=== PATIENT | female | born 1990 | race Caucasian/White ===

== ENCOUNTER 2020-07-19 22:09 | Inpatient (IN) | payer OTHER, SELFPAY ==
[2020-07-19 22:11] VITALS: BP 140/70; PULSE 130; RESP 20; TEMP 37.3; O2SAT 97; BMI 22.8
[2020-07-19 23:01] LABS: Basophils Absolute Auto 0.1 X10*3/uL (0.0-0.2); Basophils Percent Auto 0.6 % (0-2); Eosinophils Percent Auto 0.1 % (0-4); Hematocrit 38.1 % (37-47); Hemoglobin 11.9 g/dl (12.0-16.0); Imm Gran Abs Auto 0.04 X10*3/uL (0.00-0.03); Imm Gran Pct Auto 0.3 % (0.0-0.4); Lymphocytes Absolute Auto 1.5 X10*3/uL (1.2-4.9); Lymphocytes Percent Auto 12.2 % (20-40); MANUAL DIFF FLAG NO; Mean Corpuscular HGB Conc 31.2 g/dl (31.0-35.0); Mean Corpuscular Hemoglobin 26.7 pg (27.0-33.0); Mean Corpuscular Volume 85.4 fL (80-98); Mean Platelet Volume 9.6 fL (9.4-12.3); Monocytes Absolute Auto 0.9 X10*3/uL (0.1-1.2); Monocytes Percent Auto 6.9 % (2-11); Neutrophils Absolute Auto 9.8 X10*3/uL (2.0-8.3); Neutrophils Percent Auto 79.9 % (45-73); Platelet Count 374 X10*3/uL (160-400); Red Blood Count 4.46 X10*6/uL (4.20-5.50); Red Cell Distribution Width 13.6 % (11.0-16.0); White Blood Count 12.3 X10*3/uL (4.8-10.8)
[2020-07-19] MEDS: Piperacillin Sodium/Tazobactam 3.375 GM in 0.9 % Sodium Chloride 50 ML IV (23:13)
[2020-07-19] MEDS: diphenhydrAMINE HCL 50 MG/ML VIAL 25 MG IVPUSH (23:13)
[2020-07-19] MEDS: 0.9 % Sodium Chloride 1,000 ML 999 ML IVCONT (23:13)
--- NOTE | 2020-07-19 23:13 | ED.GENADULT ---
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 jugular vein comes here for swelling with pus discharge for last 10 days in left internal jugular vein spreading to the upper chest patient denies any fever but does not feel good patient has history of multiple abscesses in the past Related Data Allergies Allergy/AdvReac Type Severity Reaction Status Date / Time Cephalosporins Allergy Severe ANAPHYLAXIS Verified 07/19/20 22:10 [CEPHALOSPORINS] cefaclor [From CECLOR] Allergy Mild AIRWAY Verified 07/19/20 22:10 CONSTRICTION bee stings Allergy Unknown Anaphylaxis Uncoded 07/19/20 22:10 ceclor Allergy Unknown anaphylaxis Uncoded 08/17/17 00:00 cephalosporin Allergy Unknown anaphylaxis Uncoded 08/17/17 00:00 Review of Systems Review of Systems: REVIEW OF SYSTEMS: Pertinent positives and negatives are stated above in the history. GEN: subjective fevers, chills, fatigue HEENT: no nasal congestion, sore throat, ear pain NEURO: no headache, dizziness, focal weakness PULM: no cough, shortness of breath CV: no chest pain, palpitations, LE edema ABD: no abdominal pain, nausea, vomiting, diarrhea : no dysuria, urgency, frequency SKIN: no rash ROS otherwise negative x 10 PMFSH Past Medical History Medical History Asthma Drug abuse Social History Social History Advance Directives: No Advance Directives Information Provided: Yes Physical Exam Vital Signs: Vital Signs: Last Vital Signs Temp 99.1 F 07/19/20 22:11 Pulse 84 07/20/20 00:57 Resp 16 07/20/20 00:57 BP 148/84 H 07/20/20 00:57 Pulse Ox 98 07/20/20 00:57 Body Mass Index 22.8 Const: General: cooperative, healthy appearing and in distress Orientation/consciousness: oriented to person, oriented to place and oriented to time Limitations: no limitations HENMT: Mouth: Normal oral and palatal mucosa present Eyes: Conjunctivae: conjunctivae normal Sclerae: sclerae normal Neck: Neck: Yes lymphadenopathy Thyroid: Thyroid normal Neck images: 1. abscess with swelling and redness and pus discharge Resp: Effort & Inspection: normal respiratory effort Auscultation: clear to auscultation bilaterally, no crackles, no rales and no rhonchi Cardio: Rate: regular rate Rhythm: regular rhythm Heart sounds: S1 normal heart sound present and S2 normal heart sound present GI: Inspection: Yes normal to inspection Palpation (GI): Soft to palpation, Firmness to palpation present (GI), nontender and no guarding : General: Yes no CVA tenderness Back/Spine/Pelvis: Back: no CVA tenderness Neuro: General: oriented to person, oriented to place and oriented to time Course Course Course Narrative: patient with left neck abscess after using IV drugs without any vascular compromise. Patient refuse I and D in the ER would like surgeon to do it in the morning although she was explained the procedure. Patient received IV vancomycin Zosyn the ER will admit patient for further surgical evaluation Medical Decision Making Lab Data Result diagrams: 07/19/20 22:52 07/19/20 23:58 Labs: Lab Results 07/19/20 07/19/20 07/19/20 Range/Units 22:52 22:52 22:52 WBC 12.3 H (4.8-10.8) X10*3/uL RBC 4.46 (4.20-5.50) X10*6/uL Hgb 11.9 L (12.0-16.0) g/dl Hct 38.1 (37-47) % MCV 85.4 (80-98) fL MCH 26.7 L (27.0-33.0) pg MCHC 31.2 (31.0-35.0) g/dl RDW 13.6 (11.0-16.0) % Plt Count 374 (160-400) X10*3/uL MPV 9.6 (9.4-12.3) fL Immature Gran % (Auto) 0.3 (0.0-0.4) % Neut % (Auto) 79.9 H (45-73) % Lymph % (Auto) 12.2 L (20-40) % [place] % (Auto) 6.9 (2-11) % Eos % (Auto) 0.1 (0-4) % Baso % (Auto) 0.6 (0-2) % Lymph # (Auto) 1.5 (1.2-4.9) X10*3/uL [place] # (Auto) 0.9 (0.1-1.2) X10*3/uL Eos # (Auto) 0.0 (0.0-0.4) X10*3/uL Baso # (Auto) 0.1 (0.0-0.2) X10*3/uL Abs Immat Gran (auto) 0.04 H (0.00-0.03) X10*3/uL Absolute Neuts (auto) 9.8 H (2.0-8.3) X10*3/uL Absolute Nucleated RBC 0.000 (0.0-0.012) X10*3/uL Nucleated RBC % (auto) 0.0 (0.0-0.2) /100WBC Hold Blue Top SEE NOTE Sodium Cancelled Potassium Cancelled Chloride Cancelled Carbon Dioxide Cancelled Anion Gap Cancelled BUN Cancelled Creatinine Cancelled Estim Creat Clear Calc Cancelled Estimated GFR Cancelled Random Glucose Cancelled Lactic Acid (0.5-2.0) mmol/L Calcium Cancelled Total Bilirubin Cancelled AST Cancelled ALT Cancelled Alkaline Phosphatase Cancelled Total Protein Cancelled Albumin Cancelled COVID-19 (LOIS) (Negative) COVID-19 Clin Com 07/19/20 07/19/20 07/19/20 Range/Units 22:52 23:58 23:58 WBC (4.8-10.8) X10*3/uL RBC (4.20-5.50) X10*6/uL Hgb (12.0-16.0) g/dl Hct (37-47) % MCV (80-98) fL MCH (27.0-33.0) pg MCHC (31.0-35.0) g/dl RDW (11.0-16.0) % Plt Count (160-400) X10*3/uL MPV (9.4-12.3) fL Immature Gran % (Auto) (0.0-0.4) % Neut % (Auto) (45-73) % Lymph % (Auto) (20-40) % [place] % (Auto) (2-11) % Eos % (Auto) (0-4) % Baso % (Auto) (0-2) % Lymph # (Auto) (1.2-4.9) X10*3/uL [place] # (Auto) (0.1-1.2) X10*3/uL Eos # (Auto) (0.0-0.4) X10*3/uL Baso # (Auto) (0.0-0.2) X10*3/uL Abs Immat Gran (auto) (0.00-0.03) X10*3/uL Absolute Neuts (auto) (2.0-8.3) X10*3/uL Absolute Nucleated RBC (0.0-0.012) X10*3/uL Nucleated RBC % (auto) (0.0-0.2) /100WBC Hold Blue Top Sodium 134 L Potassium 4.1 Chloride 100 Carbon Dioxide 23 Anion Gap 15 BUN 11 Creatinine 0.64 Estim Creat Clear Calc 128.4 Estimated GFR > 60 Random Glucose 92 Lactic Acid 0.9 (0.5-2.0) mmol/L Calcium 8.3 L Total Bilirubin 0.6 AST 38 H ALT 35 H Alkaline Phosphatase 58 Total Protein 6.8 Albumin 3.5 COVID-19 (LOIS) Negative (Negative) COVID-19 Clin Com See Note Discharge Plan Discharge Clinical Impression: Abscess of neck Patient Disposition: Admitted As Inpatient
[2020-07-19 23:19] LABS: Lactic Acid 0.9 mmol/L (0.5-2.0)
--- NOTE | 2020-07-19 23:22 | PC.NURSE ---
PT IN ROOM CRYING. PT IS RATING PAIN 8/10 TO HEAD, NECK, AND CHEST. PT ON MONITOR WITH HR 112. PT MEDICATED PER EMAR. NS UP AND RUNNING W/O SITE INTACT. PT AWAITING FOR FURTHER ORDERS.
[2020-07-19 23:24] VITALS: BP 148/84; PULSE 100; RESP 18; O2SAT 99
[2020-07-19] MEDS: vancomycin HCL 1,000 MG in 0.9 % Sodium Chloride 250 ML 270 MG IV (23:30)
[2020-07-20] VITALS (15 sets, daily range): BP systolic 91–148; BP diastolic 37–84; PULSE 68–90; RESP 16–18; TEMP 36.2–37.2; O2SAT 97–100
--- NOTE | 2020-07-20 00:22 | PC.NURSE ---
PT WAKES TO VERBAL STIMULI, RESPIRATIONS EASY, N/L. SKIN W/D. PT HAS LARGE RED AREA ON LEFT SIDE OF NECK WITH MULTIPLE TRACK [place]. PT'S BREATHING WNL WITH A PO OF 99%. VS OBTAINED. ZOSYN INFUSED W/O DIFFICULTY. SITE INTACT. NS UP AND RUNNING W/O. PT AWAITING FOR CT OF NECK WHEN PENDING LABS RESULT.
[2020-07-20 00:39] LABS: COVID-19 Test Negative (Negative)
[2020-07-20 00:40] LABS: Alanine Aminotransferase 35 U/L (0-31); Albumin Level 3.5 g/dL (3.5-5.0); Alkaline Phosphatase 58 U/L (39-117); Anion Gap 15 (12-20); Aspartate Amino Transferase 38 U/L (5-31); Bilirubin Total 0.6 mg/dL (0.0-1.0); Blood Urea Nitrogen 11 mg/dL (9-16); Calcium 8.3 mg/dL (8.4-10.2); Carbon Dioxide 23 mmol/L (22-29); Chloride 100 mmol/L (96-108); Creatinine Clr Calc Pharmacy 128.4; Estimated Glomerular Filt Rate > 60; Glucose Random 92 mg/dL (60-115); Potassium 4.1 mmol/l (3.3-5.1); Sodium 134 mmol/L (135-145); Total Protein 6.8 g/dL (6.5-8.0)
--- NOTE | 2020-07-20 00:40 | CT_ITS ---
EXAMINATION: CT SOFT TISSUE NECK WITH CONTRAST CLINICAL INFORMATION: Left neck swelling, question abscess COMPARISON: None TECHNIQUE: Following the intravenous administration of 60 mL of Omnipaque 350 intravenous contrast, helical imaging was performed in the axial plane with generation of coronal and sagittal reformatted images. This CT examination was performed using dose optimization techniques as appropriate, variously including the following: *Automated exposure control *Adjustment of mA and/or kV according to patient size (this includes techniques or standardized protocols for targeted exams where dose is matched to indication/reason for exam; i.e. extremities or head) *Use of iterative reconstruction technique DLP: 893 mGy-cm FINDINGS: There is extensive stranding throughout the subcutaneous and deep fat of the left neck with overlying skin thickening, suspicious for extensive cellulitis. Stranding extends into the left parapharyngeal fat and also abuts the left submandibular gland. Additionally, there is asymmetric enlargement and abnormal hypoattenuation of left sternocleidomastoid muscle, raising suspicion for underlying myositis. No discrete rim-enhancing fluid collection is seen, though there is a more prominent region of hypoattenuation along the lateral lower aspect of the sternocleidomastoid muscle such as seen on image 69/148; this is concerning for phlegmonous change, and this region measures approximately 2.7 x 2.1 cm in the axial plane and 5.2 cm in craniocaudal dimension. There are several asymmetrically prominent left-sided level 2 cervical lymph nodes, presumably reactive. The laryngeal structures are normal. The parapharyngeal fat is preserved. The carotid sheath vasculature opacify normally. No retropharyngeal fluid collection is seen. The thyroid gland is normal. The superior mediastinum is unremarkable. The lung apices are clear. There is mucosal thickening of the left sphenoid sinus. There are mucous retention cysts noted in the maxillary sinuses. The mastoid air cells are well-aerated. The temporomandibular joints are normal. No osseous abnormalities are seen. The imaged portions of the brain parenchyma are unremarkable. CT/CT soft tissue neck w con IMPRESSION: Extensive stranding in the superficial and deep fat of the left neck, consistent with cellulitis. Abnormal appearance of the left sternocleidomastoid muscle is suspicious for associated myositis. Though no discrete rim-enhancing collection is seen at this time, there is a region of more prominent low density in the lateral aspect of the lower sternocleidomastoid muscle measuring up to 5.2 cm in craniocaudal dimension which is concerning for phlegmonous change.
[2020-07-20] MEDS: iohexoL 350 MG/ML 100 ML INFUS..BTL 60 ML IV (01:13)
--- NOTE | 2020-07-20 01:14 | PC.NURSE ---
PT TO CT IN STRETCHER.
--- NOTE | 2020-07-20 01:30 | PC.NURSE ---
IN ROOM FOR INCISE LEFT SIDE OF NECK. PT REFUSED PROCEDURE.
--- NOTE | 2020-07-20 02:27 | PC.NURSE ---
ANTIBIOTICS INFUSED W/O DIFFICULTY. SITE INTACT. PT DENIES TAKING ANY MEDS AT HOME. HOSPITALIST IN ROOM FOR EVAL. PT AWAITING FOR ROOM ASSIGNMENT.
--- NOTE | 2020-07-20 03:49 | PM.IMHP ---
History of Present Illness Date of Service: 07/20/20 Chief Complaint: left neck pain 30 y/o female with PMHx of IVDA (cocaine and heroin) who presented from home c/o left sided neck pain. uppon presentation patient was tachycardic, tachypneic. WBC of ~12.3, mildly elevated LFT', one dose of Zosyn and Vancomycin given per ED for broad coverage. Imaging of the neck obtained in the Ed shows left sided neck cellulitis with myositis. Decision for admission given. I and D was offered by ED but patient declined the procedure. Patient seen and examined face to face in the ED, ROS as above otherwise negative. PHMHx: IV drug abuse, cocaine and Heroin abuse PSx: none Toxic habits: as above Review of Systems Musculoskeletal: Musculoskeletal: Reports other (left sided neck pain ) [facility] Medical History Asthma Drug abuse Functional capacity: independent ambulation Social History Advance Directives: No Advance Directives Information Provided: Yes Meds Allergies Allergy/AdvReac Type Severity Reaction Status Date / Time Cephalosporins Allergy Severe ANAPHYLAXIS Verified 07/19/20 22:10 [CEPHALOSPORINS] cefaclor [From CECLOR] Allergy Mild AIRWAY Verified 07/19/20 22:10 CONSTRICTION bee stings Allergy Unknown Anaphylaxis Uncoded 07/19/20 22:10 ceclor Allergy Unknown anaphylaxis Uncoded 08/17/17 00:00 cephalosporin Allergy Unknown anaphylaxis Uncoded 08/17/17 00:00 Home Medications Medication Instructions Recorded Confirmed Type No Known Home Meds 07/20/20 07/20/20 History Physical Exam Vital Signs and Narrative: Vital Signs: Last Vital Signs Temp 99.1 F 07/19/20 22:11 Pulse 84 07/20/20 00:57 Resp 16 07/20/20 00:57 BP 148/84 H 07/20/20 00:57 Pulse Ox 98 07/20/20 00:57 Body Mass Index 22.8 Const: General: cooperative, comfortable and no acute distress Orientation/consciousness: oriented to person, oriented to place and oriented to time HENMT: Head: Yes normal to inspection Eyes: General: appearance normal, both eyes and all related structures Neck: Yes other (left sided neck cellulitis) Chest: Chest palpation & inspection: normal inspection of the chest Resp: Effort & Inspection: normal respiratory effort and able to speak in complete sentences Auscultation: clear to auscultation bilaterally Cardio: Jugular venous distension: no JVD Rhythm: regular rhythm Heart sounds: S1 normal heart sound present and S2 normal heart sound present GI: Inspection: Yes normal to inspection Skin: General skin exam: other (left sided neck cellulitis with possible evidence of abscess. ) Neuro: General: oriented to person, oriented to place and oriented to time Motor exam (neuro): 5/5 motor strength present throughout Results Labs CBC and Chem 7: 07/19/20 22:52 07/19/20 23:58 Labs: Laboratory Results - last 24 hr 07/19/20 07/19/20 07/19/20 22:52 22:52 22:52 MCV 85.4 MCH 26.7 L MCHC 31.2 RDW 13.6 Plt Count 374 MPV 9.6 Immature Gran % (Auto) 0.3 Neut % (Auto) 79.9 H Lymph % (Auto) 12.2 L [place] % (Auto) 6.9 Eos % (Auto) 0.1 Baso % (Auto) 0.6 Lymph # (Auto) 1.5 [place] # (Auto) 0.9 Eos # (Auto) 0.0 Baso # (Auto) 0.1 Abs Immat Gran (auto) 0.04 H Absolute Neuts (auto) 9.8 H Absolute Nucleated RBC 0.000 Nucleated RBC % (auto) 0.0 Hold Blue Top SEE NOTE Anion Gap Cancelled Estim Creat Clear Calc Cancelled Estimated GFR Cancelled Random Glucose Cancelled Lactic Acid Calcium Cancelled Total Bilirubin Cancelled AST Cancelled ALT Cancelled Alkaline Phosphatase Cancelled Total Protein Cancelled Albumin Cancelled COVID-19 (LOIS) COVID-19 Clin Com 07/19/20 07/19/20 07/19/20 22:52 23:58 23:58 MCV MCH MCHC RDW Plt Count MPV Immature Gran % (Auto) Neut % (Auto) Lymph % (Auto) [place] % (Auto) Eos % (Auto) Baso % (Auto) Lymph # (Auto) [place] # (Auto) Eos # (Auto) Baso # (Auto) Abs Immat Gran (auto) Absolute Neuts (auto) Absolute Nucleated RBC Nucleated RBC % (auto) Hold Blue Top Anion Gap 15 Estim Creat Clear Calc 128.4 Estimated GFR > 60 Random Glucose 92 Lactic Acid 0.9 Calcium 8.3 L Total Bilirubin 0.6 AST 38 H ALT 35 H Alkaline Phosphatase 58 Total Protein 6.8 Albumin 3.5 COVID-19 (LOIS) Negative COVID-19 Clin Com See Note Imaging Radiologist's Impressions: Impressions Soft Tissue Neck CT 07/20/20 00:40 IMPRESSION: Extensive stranding in the superficial and deep fat of the left neck, consistent with cellulitis. Abnormal appearance of the left sternocleidomastoid muscle is suspicious for associated myositis. Though no discrete rim-enhancing collection is seen at this time, there is a region of more prominent low density in the lateral aspect of the lower sternocleidomastoid muscle measuring up to 5.2 cm in craniocaudal dimension which is concerning for phlegmonous change. Assessment and Plan (1) Abscess of neck: Status: Acute s/p one dose of Vanco and Zosyn in the. Patient is allergic to penicilline Continue with Vancomycin as ordered Follow up Bcx and Ucx Infectious disease consult in the am General surgery for I and D (2) IV drug abuse: Status: Inactive advised to avoid drugs
--- NOTE | 2020-07-20 06:19 | PC.NURSE ---
PT SLEEPING IN STRETCHER, WAKES TO VERBAL STIMULI, PT C/O TIGHTNESS TO LATERAL SIDE OF LEFT NECK AREA. VS OBTAINED. PT DENIES ANY COMPLAINTS AND RATING NECK PAIN 5/10. PT AWAITING FOR BED ASSIGNMENT. AWAITING FURTHER ORDERS.
--- NOTE | 2020-07-20 06:21 | PC.NURSE ---
PT UNABLE TO URINATE AT THIS TIME. PT WENT TO RESTROOM PREVIOUS AND UNABLE TO URINATE AT THIS TIME. CUP AT BEDSIDE FOR PT. PT AWARE.
--- NOTE | 2020-07-20 07:06 | PC.NURSE ---
report to LUANN Levine
--- NOTE | 2020-07-20 08:19 | PC.NURSE ---
REPORT FROM KIMI. PT AWAITING BED ASSIGNMENT FOR INFECTED LEFT NECK S/P INJECTING. DR WRIGHT AT BEDSIDE FOR CONSULT. NAD. ATE BREAKFAST.
--- NOTE | 2020-07-20 08:29 | PM.CNGS ---
History of Present Illness Consult details Consult date: 07/20/20 Reason for consult: other (Left neck abscess) Requesting physician: Isaiah Holley Narrative: This is a 30-year-old female with a history of IV heroin use to injected into her neck in multiple locations on the left side recently. She has a several day history of increasing pain and swelling in the left anterior neck and reports that she has been draining large amounts of pus from the area for the last day or so. She reports pain and difficulty moving her head. Review of Systems Constitutional: Constitutional: Denies chills and Denies fever(s) Cardiovascular: Cardiovascular: Denies chest pain, Denies palpitations and Denies dyspnea Respiratory: Respiratory: Denies dyspnea Endocrine: Endocrine: Denies palpitations PMFSH Past Medical History Medical History Asthma Drug abuse IV drug abuse Functional capacity: independent ambulation Social History Social History Advance Directives: No Advance Directives Information Provided: Yes Meds Allergies Allergy/AdvReac Type Severity Reaction Status Date / Time Cephalosporins Allergy Severe ANAPHYLAXIS Verified 07/19/20 22:10 [CEPHALOSPORINS] cefaclor [From CECLOR] Allergy Mild AIRWAY Verified 07/19/20 22:10 CONSTRICTION bee stings Allergy Unknown Anaphylaxis Uncoded 07/19/20 22:10 ceclor Allergy Unknown anaphylaxis Uncoded 08/17/17 00:00 cephalosporin Allergy Unknown anaphylaxis Uncoded 08/17/17 00:00 Home Medications Medication Instructions Recorded Confirmed Type No Known Home Meds 07/20/20 07/20/20 History Physical Exam Vital Signs: Vital Signs: Last Vital Signs Temp 99.1 F 07/19/20 22:11 Pulse 74 07/20/20 06:00 Resp 16 07/20/20 06:00 BP 99/48 L 07/20/20 06:00 Pulse Ox 98 07/20/20 06:00 Body Mass Index 22.8 Const: General: cooperative, poor hygiene and tired appearing Neck: Other: Left anterior neck is erythematous and indurated around periphery of erythematous area of, softer centrally with 3 small wounds consistent with injection sites. The central site is slightly larger and is draining seroma purulent-appearing material, moderate tenderness Neck: No full ROM (Limited by pain and swelling) Carotids: normal carotid upstroke (On right) Resp: Effort & Inspection: normal respiratory effort Auscultation: clear to auscultation bilaterally Cardio: Rate: regular rate Rhythm: regular rhythm Results Labs Result diagrams: 07/19/20 22:52 07/19/20 23:58 Labs: Abnormal lab results 07/19/20 07/19/20 Range/Units 22:52 23:58 WBC 12.3 H (4.8-10.8) X10*3/uL Hgb 11.9 L (12.0-16.0) g/dl MCH 26.7 L (27.0-33.0) pg Neut % (Auto) 79.9 H (45-73) % Lymph % (Auto) 12.2 L (20-40) % Abs Immat Gran (auto) 0.04 H (0.00-0.03) X10*3/uL Absolute Neuts (auto) 9.8 H (2.0-8.3) X10*3/uL Sodium 134 L (135-145) mmol/L Calcium 8.3 L (8.4-10.2) mg/dL AST 38 H (5-31) U/L ALT 35 H (0-31) U/L Short CBC 07/19/20 Range/Units 22:52 WBC 12.3 H (4.8-10.8) X10*3/uL Hgb 11.9 L (12.0-16.0) g/dl Hct 38.1 (37-47) % Plt Count 374 (160-400) X10*3/uL BMP 07/19/20 07/19/20 22:52 23:58 Sodium Cancelled 134 L Potassium Cancelled 4.1 Chloride Cancelled 100 Carbon Dioxide Cancelled 23 BUN Cancelled 11 Creatinine Cancelled 0.64 Calcium Cancelled 8.3 L Liver Function 07/19/20 07/19/20 Range/Units 22:52 23:58 Total Bilirubin Cancelled 0.6 AST Cancelled 38 H ALT Cancelled 35 H Alkaline Phosphatase Cancelled 58 Albumin Cancelled 3.5 All other labs normal. [address] [address] [address] Scan Report Signed Patient: Amanda Ng#: [id number] : 1990Acct:[id number] Age/Sex: 30 / FADM Date: 07/19/20 Loc: HO.ED Attending Dr: Ordering Physician: Luis Felipe Deras MD Date of Service: 07/20/20 Procedure(s): CT soft tissue neck w con Accession Number(s): [id number] cc: Luis Felipe Deras MD~ EXAMINATION: CT SOFT TISSUE NECK WITH CONTRAST CLINICAL INFORMATION: Left neck swelling, question abscess COMPARISON: None TECHNIQUE: Following the intravenous administration of 60 mL of Omnipaque 350 intravenous contrast, helical imaging was performed in the axial plane with generation of coronal and sagittal reformatted images. This CT examination was performed using dose optimization techniques as appropriate, variously including the following: *Automated exposure control *Adjustment of mA and/or kV according to patient size (this includes techniques or standardized protocols for targeted exams where dose is matched to indication/reason for exam; i.e. extremities or head) *Use of iterative reconstruction technique DLP: 893 mGy-cm FINDINGS: There is extensive stranding throughout the subcutaneous and deep fat of the left neck with overlying skin thickening, suspicious for extensive cellulitis. Stranding extends into the left parapharyngeal fat and also abuts the left submandibular gland. Additionally, there is asymmetric enlargement and abnormal hypoattenuation of left sternocleidomastoid muscle, raising suspicion for underlying myositis. No discrete rim-enhancing fluid collection is seen, though there is a more prominent region of hypoattenuation along the lateral lower aspect of the sternocleidomastoid muscle such as seen on image 69/148; this is concerning for phlegmonous change, and this region measures approximately 2.7 x 2.1 cm in the axial plane and 5.2 cm in craniocaudal dimension. There are several asymmetrically prominent left-sided level 2 cervical lymph nodes, presumably reactive. The laryngeal structures are normal. The parapharyngeal fat is preserved. The carotid sheath vasculature opacify normally. No retropharyngeal fluid collection is seen. The thyroid gland is normal. The superior mediastinum is unremarkable. The lung apices are clear. There is mucosal thickening of the left sphenoid sinus. There are mucous retention cysts noted in the maxillary sinuses. The mastoid air cells are well-aerated. The temporomandibular joints are normal. No osseous abnormalities are seen. The imaged portions of the brain parenchyma are unremarkable. CT/CT soft tissue neck w con IMPRESSION: Extensive stranding in the superficial and deep fat of the left neck, consistent with cellulitis. Abnormal appearance of the left sternocleidomastoid muscle is suspicious for associated myositis. Though no discrete rim-enhancing collection is seen at this time, there is a region of more prominent low density in the lateral aspect of the lower sternocleidomastoid muscle measuring up to 5.2 cm in craniocaudal dimension which is concerning for phlegmonous change. Dictated By:ELISE VITALE MD Signed By:<Electronically signed by ELISE VITALE MD in OV>07/20/20 0154 Assessment and Plan (1) Abscess of neck: Status: Acute She has cellulitis and clinical findings consistent with an abscess of the left anterior neck. Incision and drainage is appropriate. The CT scan report indicates the presence of a phlegmon rather than an abscess, but based upon exam findings and history, it appears that an abscess is present. I discussed this with her. She is willing to proceed with incision and drainage. Because of the location and extent of the involved area, have recommended incision and drainage under anesthesia. We have discussed risks including but not limited to infection, bleeding, scarring, and nerve injury. The procedure is scheduled for later this afternoon, as she has not been NPO up to this point. She agrees to proceed. Procedures Abscess I/D Date of Service: 07/20/20
[2020-07-20 09:05] LABS: Glucose Urine UA NEG (NEG); Leukocyte Esterase Urine NEG (NEG); Nitrite Urine NEG (NEG); Urine Blood TRACE (NEG); Urine Ketones NEG (NEG); Urine Protein NEG (NEG-TRACE)
[2020-07-20 09:06] LABS: Appearance Urine CLEAR; Color Urine YELLOW
[2020-07-20 09:17] LABS: WBC Urine 0-2 /HPF (0-4)
[2020-07-20 09:18] LABS: RBC Urine 0-2 /HPF (0); Squamous Epithelial Cell Urine 1+ /LPF
[2020-07-20 12:35] LABS: MANUAL DIFF FLAG NO
[2020-07-20 12:40] LABS: Basophils Absolute Auto 0.1 X10*3/uL (0.0-0.2); Basophils Percent Auto 0.6 % (0-2); Eosinophils Absolute Auto 0.1 X10*3/uL (0.0-0.4); Eosinophils Percent Auto 1.5 % (0-4); Hematocrit 37.3 % (37-47); Hemoglobin 11.6 g/dl (12.0-16.0); Imm Gran Abs Auto 0.03 X10*3/uL (0.00-0.03); Imm Gran Pct Auto 0.4 % (0.0-0.4); Lymphocytes Absolute Auto 2.1 X10*3/uL (1.2-4.9); Lymphocytes Percent Auto 25.4 % (20-40); Mean Corpuscular HGB Conc 31.1 g/dl (31.0-35.0); Mean Corpuscular Hemoglobin 26.7 pg (27.0-33.0); Mean Corpuscular Volume 85.9 fL (80-98); Mean Platelet Volume 9.4 fL (9.4-12.3); Monocytes Absolute Auto 0.8 X10*3/uL (0.1-1.2); Monocytes Percent Auto 9.7 % (2-11); Neutrophils Percent Auto 62.4 % (45-73); Platelet Count 359 X10*3/uL (160-400); Red Blood Count 4.34 X10*6/uL (4.20-5.50); Red Cell Distribution Width 13.8 % (11.0-16.0); White Blood Count 8.1 X10*3/uL (4.8-10.8)
[2020-07-20 13:02] LABS: Anion Gap 14 (12-20); Blood Urea Nitrogen 10 mg/dL (9-16); Calcium 8.2 mg/dL (8.4-10.2); Carbon Dioxide 25 mmol/L (22-29); Chloride 103 mmol/L (96-108); Creatinine Clr Calc Pharmacy 120.9; Estimated Glomerular Filt Rate > 60; Glucose Random 92 mg/dL (60-115); Potassium 4.6 mmol/l (3.3-5.1); Sodium 137 mmol/L (135-145)
[2020-07-20] MEDS: LORazepam 0.5 MG TABLET PO (13:51)
[2020-07-20 15:09] LABS: UPreg QC Valid YES; Urine Pregnancy NEGATIVE (NEGATIVE)
--- NOTE | 2020-07-20 15:55 | P.CNID_ITS ---
History of Present Illness Data of Consult Service Date: 07/20/20 Requesting physician: Taylor Ambrose Primary Care Provider: Unknown Physician HPI Reason for consult: left neck abscess She presents to hospital with discomfort left neck for a day She injects cocaine and heroin into veins in neck She has discomfort going into mid chest area as well She has had fever and chills Review of Systems Review of Systems: Yes all other systems are reviewed and are negative FOR[facility]LY [facility] Past Medical History Medical History Asthma Drug abuse IV drug abuse Functional capacity: independent ambulation Social History Social History Household Members: None Housing: Homeless Do you presently have visiting nurse or other home services: No Smoking Status: Current every day smoker Tobacco Type: Cigarette Packs Per Day: 0.5 Cigarettes Per Day: 10.0 Years Smoked: 15 Smoked in Last 30 Days: Yes Patient Interested in Nicotine Replacement: Yes (nicotine gum) Patient Given Instructions on How to Stop Smoking: No Second Hand Smoke Exposure: Yes Use of substances other than those prescribed or required for medical reasons: Yes Substance Use Type: Heroin Substance Use Frequency: Daily Last Used Substance Other:: 07/19/20 1700 Currently Displaying Signs/Symptoms of Drug Intoxication Withdrawal: Yes Any prior treatment program specific to substance use: Yes (methadone and suboxone before) Have you been hit, kicked, punched, or otherwise hurt by someone within the past year? If so, by whom?: No Do you feel safe in your current relationship?: Yes Is there a partner from a previous relationship who is making you feel unsafe now?: No Are you made to feel afraid or neglected: No Advance Directives: No Advance Directives Information Provided: Yes Advance Directives on File: No Do you have thoughts of harming others: None Do you have a plan to hurt others: No Plan Recently lost weight without trying: No Meds Allergies Allergy/AdvReac Type Severity Reaction Status Date / Time Cephalosporins Allergy Severe ANAPHYLAXIS Verified 07/19/20 22:10 [CEPHALOSPORINS] cefaclor [From CECLOR] Allergy Mild AIRWAY Verified 07/19/20 22:10 CONSTRICTION bee stings Allergy Unknown Anaphylaxis Uncoded 07/19/20 22:10 Home Medications Medication Instructions Recorded Confirmed Type No Known Home Meds 07/20/20 07/20/20 History Physical Exam Vital Signs: Vital Signs: Last Vital Signs Temp 98.2 F 07/20/20 14:27 Pulse 68 07/20/20 14:27 Resp 18 07/20/20 14:27 BP 94/46 L 07/20/20 14:27 Pulse Ox 99 07/20/20 14:27 Body Mass Index 22.8 Const: General: cooperative Orientation/consciousness: oriented to person, oriented to place and oriented to time HENMT: Head: Yes normal to inspection Mouth: Normal oral and palatal mucosa present Eyes: General: appearance normal, both eyes and all related structures Neck: Neck images: 1. swelling left neck Chest: Chest palpation & inspection: normal inspection of the chest, normal palpation of entire chest wall and abnormal inspection of the chest (discomfort palpation chest wall) Resp: Effort & Inspection: normal respiratory effort Cardio: Rate: regular rate Rhythm: regular rhythm GI: Inspection: Yes normal to inspection Skin: General skin exam: no rashes or lesions noted Neuro: General: oriented to person, oriented to place and oriented to time Assessment and Plan (1) Abscess of neck: Problem details: She has probable MRSA neck But it can be polymicrobial yousif,gram negative and anerobes Status: Acute Would continue Vancomycin and broad spectrum Surgery is following Watch chest wall for any symptoms of mediastinitis Check HIV and Hepatitis C Results Labs CBC & Chem 7: 07/20/20 12:29 07/20/20 12:29 Labs: Short CBC 07/19/20 07/20/20 Range/Units 22:52 12:29 WBC 12.3 H 8.1 (4.8-10.8) X10*3/uL Hgb 11.9 L 11.6 L (12.0-16.0) g/dl Hct 38.1 37.3 (37-47) % Plt Count 374 359 (160-400) X10*3/uL BMP 07/19/20 07/19/20 07/20/20 22:52 23:58 12:29 Sodium Cancelled 134 L 137 Potassium Cancelled 4.1 4.6 Chloride Cancelled 100 103 Carbon Dioxide Cancelled 23 25 BUN Cancelled 11 10 Creatinine Cancelled 0.64 0.68 Calcium Cancelled 8.3 L 8.2 L Liver Function 07/19/20 07/19/20 Range/Units 22:52 23:58 Total Bilirubin Cancelled 0.6 AST Cancelled 38 H ALT Cancelled 35 H Alkaline Phosphatase Cancelled 58 Albumin Cancelled 3.5 Urine 07/20/20 Range/Units 08:52 Urine Color YELLOW Urine Appearance CLEAR Urine pH 6.0 (5.0-8.0) Ur Specific [place] 1.010 (1.005-1.025) Urine Protein NEG (NEG-TRACE) MG/DL Urine Glucose (UA) NEG (NEG) MG/DL
--- NOTE | 2020-07-20 16:23 | PM.EVENT ---
Event Note Date of Service: 07/21/20 Event Note: Patient already seen by night hospitalist service Patient came with neck cellulitis/abscess Patient says neck pain is little better but feeling anxious and restlessness also. Physical exam: neck left -has erythema /swelling Cvs: rrr, [id number] , no murmur res: clear to auscultation ,no rhonchii or wheezing abd: no rebound or guarding ,nt, bs present. ext pulses present , no cyanosis neuro: axo3 , nonfocal. Assessment and plan coordinated in H&P note 1. Neck cellulitis/abscess injects cocaine in neck. Patient is already on IV antibiotics vancomycin, levaquin/flagyl vanco trough continue ivf Going for neck abscess I&D as per surgery today
--- NOTE | 2020-07-20 16:40 | MHC.SHP ---
Pre-Procedural Eval Section A The patient is an INPATIENT: Yes Section B Chief Complaint: Neck Pain Allergies: Allergies Allergy/AdvReac Type Severity Reaction Status Date / Time Cephalosporins Allergy Severe ANAPHYLAXIS Verified 07/19/20 22:10 [CEPHALOSPORINS] cefaclor [From CECLOR] Allergy Mild AIRWAY Verified 07/19/20 22:10 CONSTRICTION bee stings Allergy Unknown Anaphylaxis Uncoded 07/19/20 22:10 Plan Diagnosis/Plan: Unchanged Patient has been examined and remains a candidate for the planned procedure
--- NOTE | 2020-07-20 16:59 | P.CONAN_ITS ---
[facility] Past Medical History Medical History Asthma Drug abuse IV drug abuse Social History Social History Household Members: None Housing: Homeless Do you presently have visiting nurse or other home services: No Smoking Status: Current every day smoker Tobacco Type: Cigarette Packs Per Day: 0.5 Cigarettes Per Day: 10.0 Years Smoked: 15 Smoked in Last 30 Days: Yes Patient Interested in Nicotine Replacement: Yes (nicotine gum) Patient Given Instructions on How to Stop Smoking: No Second Hand Smoke Exposure: Yes Use of substances other than those prescribed or required for medical reasons: Yes Substance Use Type: Heroin Substance Use Frequency: Daily Last Used Substance Other:: 07/19/20 1700 Currently Displaying Signs/Symptoms of Drug Intoxication Withdrawal: Yes Any prior treatment program specific to substance use: Yes (methadone and suboxone before) Have you been hit, kicked, punched, or otherwise hurt by someone within the past year? If so, by whom?: No Do you feel safe in your current relationship?: Yes Is there a partner from a previous relationship who is making you feel unsafe now?: No Are you made to feel afraid or neglected: No Advance Directives: No Advance Directives Information Provided: Yes Advance Directives on File: No Do you have thoughts of harming others: None Do you have a plan to hurt others: No Plan Recently lost weight without trying: No Meds Allergies Allergy/AdvReac Type Severity Reaction Status Date / Time Cephalosporins Allergy Severe ANAPHYLAXIS Verified 07/19/20 22:10 [CEPHALOSPORINS] cefaclor [From CECLOR] Allergy Mild AIRWAY Verified 07/19/20 22:10 CONSTRICTION bee stings Allergy Unknown Anaphylaxis Uncoded 07/19/20 22:10 Home Medications Medication Instructions Recorded Confirmed Type No Known Home Meds 07/20/20 07/20/20 History Assessment and Plan Final Anesthetic Review NPO: Yes ASA Class: II and Emergency Final Preanesthetic Review: No Changes in Pt Med Stat, Meds/Allgs Chart Reviewed, Consent Obtained/Reviewed and Anes Risks/Benef Reviewed Patient Risk: Low Procedure Risk: Low Anesthetic Plan Anesthetic Plan: GA Disposition: Standard PACU
[2020-07-20] MEDS: Lactated Ringers 1,000 ML 100 ML IVCONT (17:05)
--- NOTE | 2020-07-20 18:09 | P.OP_ITS ---
Operative Note Operative Note Date of Service: 07/20/20 Narrative: Preoperative diagnosis: Abscess left anterior neck Postoperative diagnosis: Same Procedure: Incision and drainage of abscess left anterior neck Napkin Band Wrapper: None Anesthesia: General laryngeal mask Estimated blood loss: 1 cc Specimen: Cultures Immediate complications: None Indications: This is a 30-year-old female who injected heroin into her left anterior neck. She developed an abscess associated with the injection sites and drainage is planned. Procedure in detail: With the patient in the supine position after obtaining adequate anesthesia, time-out procedure was performed. The anterior neck, lower face and upper chest wall were prepped with Betadine solution and were draped sterilely. The incision line was marked along the area of fluctuance overlying the left sternocleidomastoid muscle. Incision was made and was carried into the subcutaneous tissues. Seropurulent drainage and a thick coagulum was encountered. Cultures were taken. The abscess cavity was evacuated was copiously irrigated with warm saline solution. There was no significant bleeding. The wound was packed with saline moistened half-inch plain packing and a dry sterile dressing was applied. She tolerated the procedure well. Sponge and sharp counts were correct. She tolerated the procedure well and was transported to the recovery room in stable condition. There were no immediate complications.
[2020-07-20] MEDS: oxyCODONE HCl Immed Release 5 MG TABLET 10 MG PO (18:44)
[2020-07-20] MEDS: Acetaminophen 325 MG TABLET 650 MG PO (18:45)
--- NOTE | 2020-07-20 20:35 | PC.NURSE ---
Addendum entered by Margaux Ragland RN 07/20/20 22:18: E-SANDRA Ho spoke with patient ,IV bolus is infusing as ordered,patient is sleeping .Patient removed her surgical drsg,replaced with DSD,packing intact. Original Note: P-patient states she takes 20 bags of Heroin daily,does not want the ordered Ativan,asking for meds to help her with withdrawals I-dr. Szymanski notified of the above E-awaiting new orders
[2020-07-20] MEDS: 0.9 % Sodium Chloride 500 ML 100 ML IV (20:49)
[2020-07-20] MEDS: metroNIDAZOLE/NS 500 MG/100 ML PIGGYBACK 100 MG IV (20:52)
[2020-07-20] MEDS: 0.9 % Sodium Chloride 1,000 ML 999 ML IVCONT (22:07)
[2020-07-20] MEDS: levoFLOXacin/D5W 750 MG/150 ML PIGGYBACK 100 MG IV (23:18)
[2020-07-21] VITALS: BP 95/40; PULSE 59; RESP 16; TEMP 36.1; O2SAT 98
--- NOTE | 2020-07-21 | ECG_ITS ---
Test Reason : CHECK QTC Blood Pressure : / mmHG Vent. Rate : 102 BPM Atrial Rate : 102 BPM P-R Int : 122 ms QRS Dur : 080 ms QT Int : 318 ms P-R-T Axes : 045 063 012 degrees QTc Int : 414 ms Sinus tachycardia Nonspecific T wave abnormality Abnormal ECG When compared with ECG of 08-JUN-2010 18:24, Inverted T waves have replaced nonspecific T wave abnormality in Anterior leads Referred By: Taylor Ambrose Electronically Signed By:RUEL LAIRD MD
[2020-07-21] MEDS: Morphine Sulfate 2 MG/ML CARTRIDGE IVPUSH ×2 (01:44→08:18)
[2020-07-21] MEDS: LORazepam 0.5 MG TABLET 1 MG PO ×3 (01:45→12:46)
[2020-07-21 04:00] VITALS: BP 115/51; PULSE 63; RESP 16; TEMP 36.2; O2SAT 97
[2020-07-21] MEDS: metroNIDAZOLE/NS 500 MG/100 ML PIGGYBACK 100 MG IV (04:20)
[2020-07-21 06:48] LABS: Hematocrit 36.3 % (37-47); Hemoglobin 11.3 g/dl (12.0-16.0); Mean Corpuscular HGB Conc 31.1 g/dl (31.0-35.0); Mean Corpuscular Hemoglobin 26.7 pg (27.0-33.0); Mean Corpuscular Volume 85.6 fL (80-98); Mean Platelet Volume 9.6 fL (9.4-12.3); Platelet Count 390 X10*3/uL (160-400); Red Blood Count 4.24 X10*6/uL (4.20-5.50); Red Cell Distribution Width 13.9 % (11.0-16.0); White Blood Count 5.2 X10*3/uL (4.8-10.8)
[2020-07-21 07:12] LABS: Anion Gap 14 (12-20); Blood Urea Nitrogen 11 mg/dL (9-16); Calcium 8.1 mg/dL (8.4-10.2); Carbon Dioxide 23 mmol/L (22-29); Chloride 106 mmol/L (96-108); Creatinine Clr Calc Pharmacy 128.4; Estimated Glomerular Filt Rate > 60; Glucose Random 93 mg/dL (60-115); Potassium 4.3 mmol/l (3.3-5.1); Sodium 139 mmol/L (135-145)
[2020-07-21 07:34] VITALS: BP 108/56; PULSE 98; RESP 18; TEMP 37.2; O2SAT 98
[2020-07-21 08:02] LABS: ~HepC Num1 0.15 S/CO (0.00-0.79); ~Hepatitis C Antibody Nonreactive (Nonreactive)
[2020-07-21 08:03] LABS: HIV AB/AG Nonreactive (Nonreactive); HIV Num 1 0.09 S/CO (0.00-0.99)
[2020-07-21] MEDS: oxyCODONE HCl Immed Release 5 MG TABLET 10 MG PO (08:10)
--- NOTE | 2020-07-21 09:02 | HO.POSTANES ---
Post Anesthesia Evaluation Post Anesthesia Evaluation Vital Signs: Vital Signs Temp Pulse Resp BP Pulse Ox 07/21/20 07:34 98.9 F 98 18 108/56 L 98 07/21/20 04:00 97.2 F 63 16 115/51 L 97 07/21/20 00:00 97 F 59 16 95/40 L 98 Anesthesia: General Mental Status: Awake Pain Control: Satisfactory Nausea/Vomiting: None Hydration: Adequate Anesthesia-Related Issues: No Anes. Related Issues
--- NOTE | 2020-07-21 10:37 | PM.PNGS ---
Subjective Subjective Interval history: Pt. reports that left neck dressing fell off last night. Reports ongoing pain left neck. No other complaints. Physical Exam Vital Signs: Vital Signs: Last Vital Signs Temp 98.9 F 07/21/20 07:34 Pulse 98 07/21/20 07:34 Resp 18 07/21/20 07:34 BP 108/56 L 07/21/20 07:34 Pulse Ox 98 07/21/20 07:34 Body Mass Index 22.8 Const: Other: Alert, NAD Neck: Other: I&D site left anterior neck, packing in place initially, after removal, wound bed noted to be clean, pink, no bleeding, erthema in surrounding skin improved Progress Note: A&P Assessment and plan (1) Abscess of neck: Status: Acute Assessment and Plan: Appears stable s/p I&D of left neck abscess. Cx pending. Cont. DSD to wound site. ABO. Fall Risk Details Current Medications: Current Medications Generic Name Dose Route Start Last Admin Trade Name Freq PRN Reason Stop Dose Admin Albuterol Sulfate 2.5 mg 07/20/20 16:56 Albuterol Sulfate (0.083%) 2.5 Mg/3 Ml Vial.Neb INHALE ONCE PRN Wheezing Fentanyl 25 mcg 07/20/20 17:59 Fentanyl Citrate/Pf 100 Mcg/2 Ml Vial IVPUSH Q5M PRN Pain, Moderate (Pain Scale 4-6 Metronidazole 500 mg in 100 mls @ 100 mls/hr 07/20/20 20:00 07/21/20 05:32 Flagyl IV Infused Q8H KATEY Infusion Levofloxacin 750 mg in 150 mls @ 100 mls/hr 07/20/20 21:00 07/21/20 01:12 Levaquin IV Infused Q24H KATEY Infusion Loperamide HCl 4 mg 07/20/20 13:32 Loperamide Hcl 2 Mg Capsule PO Q4H PRN diarrahe Lorazepam 1 mg 07/20/20 14:31 07/21/20 08:03 Lorazepam 0.5 Mg Tablet PO 1 mg Q4H PRN Administration Anxiety/reslessness Morphine Sulfate 2 mg 07/20/20 21:03 07/21/20 08:18 Morphine Sulfate 2 Mg/Ml Cartridge IVPUSH 2 mg Q4H PRN Administration Opiate Withdrawal Ondansetron HCl 4 mg 07/20/20 16:56 Ondansetron Hcl 4 Mg/2 Ml Vial IVPUSH ONCE PRN Nausea and Vomiting Ondansetron HCl 4 mg 07/20/20 17:59 Ondansetron Hcl 4 Mg/2 Ml Vial IVPUSH ONCE PRN Nausea and Vomiting Oxycodone HCl 10 mg 07/20/20 13:31 07/21/20 08:10 Oxycodone Hcl Immed Release 5 Mg Tablet PO 10 mg Q6H PRN Administration Pain and Fever Time Spent With Patient Time: Total time spent is greater than 50% in coordination of care (as documented) at patient's floor/unit and/or counseling patient: Time with patient: less than 15 minutes Procedures Abscess I/D Date of Service: 07/21/20
--- NOTE | 2020-07-21 10:50 | P.CNPS_ITS ---
History of Present Illness Chief Complaint: Neck Pain Reason for Consult: Addiction Medicine Consult Requesting physician: Taylor Ambrose Discussed with referring provider: Yes Sources of Information: patient interviewed and chart reviewed HPI Narrative: Patient is a 30 year old female with opioid use disorder, currently medically admitted with abscess in her neck. Consult requested to address OUD and treat withdrawal Pt seen in room 380. She is awake, alert, engaged in interview. Reporting irritability, nausea, loose stools, chills, body aches. Discussed treatment options and patient very clear that she is not looking to start MAT, she is only looking to address withdrawal sx while she is medically admitted. She reports currently using 2 bundles QD heroin and occasional heroin. Denies ETOH use or other illicit substance use Past Psychiatric History: not reviewed Medical Evaluation Reviewed: Yes Personal & Social History: Currently experiencing homelessness Review of Systems Gastrointestinal: Reports loose stools and Reports nausea Musculoskeletal: Reports myalgias and Reports arthralgias Psychiatric: Reports anxiety and Reports irritability PMFSH Medical History Asthma Drug abuse IV drug abuse Substance History: Pt reports currently using 2 bundles of heroin daily occasional cocaine use History of MAT both suboxone and methadone Diagnostics Vital Signs (24Hr): Vital Signs - 24 hr 07/20/20 11:49 07/20/20 14:27 07/20/20 18:14 Temperature 99.0 F 98.2 F 97.4 F Pulse Rate 75 68 78 Respiratory Rate 17 18 16 Blood Pressure 101/51 L 94/46 L 92/47 L Pulse Oximetry 99 99 98 07/20/20 18:19 07/20/20 18:24 07/20/20 18:29 Temperature Pulse Rate 74 71 71 Respiratory Rate 16 16 16 Blood Pressure 101/38 L 91/47 L 91/37 L Pulse Oximetry 98 98 97 07/20/20 18:43 07/20/20 18:58 07/20/20 19:59 Temperature 97.1 F Pulse Rate 79 73 Respiratory Rate 16 18 16 Blood Pressure 93/51 L 99/48 L 103/54 L Pulse Oximetry 99 98 07/21/20 00:00 07/21/20 04:00 07/21/20 07:34 Temperature 97 F 97.2 F 98.9 F Pulse Rate 59 63 98 Respiratory Rate 16 16 18 Blood Pressure 95/40 L 115/51 L 108/56 L Pulse Oximetry 98 97 98 Body Mass Index 22.8 Labs Results: 07/21/20 06:10 07/21/20 06:10 Labs: Laboratory Results - last 48 hr 07/19/20 07/19/20 07/19/20 22:52 22:52 22:52 WBC 12.3 H RBC 4.46 Hgb 11.9 L Hct 38.1 MCV 85.4 MCH 26.7 L MCHC 31.2 RDW 13.6 Plt Count 374 MPV 9.6 Immature Gran % (Auto) 0.3 Neut % (Auto) 79.9 H Lymph % (Auto) 12.2 L [place] % (Auto) 6.9 Eos % (Auto) 0.1 Baso % (Auto) 0.6 Lymph # (Auto) 1.5 Maury # (Auto) 0.9 Eos # (Auto) 0.0 Baso # (Auto) 0.1 Abs Immat Gran (auto) 0.04 H Absolute Neuts (auto) 9.8 H Absolute Nucleated RBC 0.000 Nucleated RBC % (auto) 0.0 Hold Blue Top SEE NOTE Sodium Cancelled Potassium Cancelled Chloride Cancelled Carbon Dioxide Cancelled Anion Gap Cancelled BUN Cancelled Creatinine Cancelled Estim Creat Clear Calc Cancelled Estimated GFR Cancelled Random Glucose Cancelled Lactic Acid Calcium Cancelled Total Bilirubin Cancelled AST Cancelled ALT Cancelled Alkaline Phosphatase Cancelled Total Protein Cancelled Albumin Cancelled Urine Color Urine Appearance Urine pH Ur Specific [place] Urine Protein Urine Glucose (UA) Urine Ketones Urine Blood Urine Nitrite Ur Leukocyte Esterase Urine RBC Urine WBC Ur Squamous Epith Cells Urine Bacteria Urine Test COVID-19 (LOIS) COVID-19 Clin Com Hepatitis C Ab (EIA) HIV 1&2 Ab/P24 Ag 4thGn 07/19/20 07/19/20 07/19/20 22:52 23:58 23:58 WBC RBC Hgb Hct MCV MCH MCHC RDW Plt Count MPV Immature Gran % (Auto) Neut % (Auto) Lymph % (Auto) [place] % (Auto) Eos % (Auto) Baso % (Auto) Lymph # (Auto) Maury # (Auto) Eos # (Auto) Baso # (Auto) Abs Immat Gran (auto) Absolute Neuts (auto) Absolute Nucleated RBC Nucleated RBC % (auto) Hold Blue Top Sodium 134 L Potassium 4.1 Chloride 100 Carbon Dioxide 23 Anion Gap 15 BUN 11 Creatinine 0.64 Estim Creat Clear Calc 128.4 Estimated GFR > 60 Random Glucose 92 Lactic Acid 0.9 Calcium 8.3 L Total Bilirubin 0.6 AST 38 H ALT 35 H Alkaline Phosphatase 58 Total Protein 6.8 Albumin 3.5 Urine Color Urine Appearance Urine pH Ur Specific [place] Urine Protein Urine Glucose (UA) Urine Ketones Urine Blood Urine Nitrite Ur Leukocyte Esterase Urine RBC Urine WBC Ur Squamous Epith Cells Urine Bacteria Urine Test COVID-19 (LOIS) Negative COVID-19 Clin Com See Note Hepatitis C Ab (EIA) HIV 1&2 Ab/P24 Ag 4thGn 07/20/20 07/20/20 07/20/20 08:52 12:29 12:29 WBC 8.1 RBC 4.34 Hgb 11.6 L Hct 37.3 MCV 85.9 MCH 26.7 L MCHC 31.1 RDW 13.8 Plt Count 359 MPV 9.4 Immature Gran % (Auto) 0.4 Neut % (Auto) 62.4 Lymph % (Auto) 25.4 [place] % (Auto) 9.7 Eos % (Auto) 1.5 Baso % (Auto) 0.6 Lymph # (Auto) 2.1 Maury # (Auto) 0.8 Eos # (Auto) 0.1 Baso # (Auto) 0.1 Abs Immat Gran (auto) 0.03 Absolute Neuts (auto) 5.0 Absolute Nucleated RBC 0.000 Nucleated RBC % (auto) 0.0 Hold Blue Top Sodium 137 Potassium 4.6 Chloride 103 Carbon Dioxide 25 Anion Gap 14 BUN 10 Creatinine 0.68 Estim Creat Clear Calc 120.9 Estimated GFR > 60 Random Glucose 92 Lactic Acid Calcium 8.2 L Total Bilirubin AST ALT Alkaline Phosphatase Total Protein Albumin Urine Color YELLOW Urine Appearance CLEAR Urine pH 6.0 Ur Specific [place] 1.010 Urine Protein NEG Urine Glucose (UA) NEG Urine Ketones NEG Urine Blood TRACE Urine Nitrite NEG Ur Leukocyte Esterase NEG Urine RBC 0-2 Urine WBC 0-2 Ur Squamous Epith Cells 1+ Urine Bacteria NONE Urine Test COVID-19 (LOIS) COVID-19 Clin Com Hepatitis C Ab (EIA) HIV 1&2 Ab/P24 Ag 4thGn 07/20/20 07/21/20 07/21/20 14:57 06:10 06:10 WBC RBC Hgb Hct MCV MCH MCHC RDW Plt Count MPV Immature Gran % (Auto) Neut % (Auto) Lymph % (Auto) [place] % (Auto) Eos % (Auto) Baso % (Auto) Lymph # (Auto) [place] # (Auto) Eos # (Auto) Baso # (Auto) Abs Immat Gran (auto) Absolute Neuts (auto) Absolute Nucleated RBC Nucleated RBC % (auto) Hold Blue Top Sodium Potassium Chloride Carbon Dioxide Anion Gap BUN Creatinine Estim Creat Clear Calc Estimated GFR Random Glucose Lactic Acid Calcium Total Bilirubin AST ALT Alkaline Phosphatase Total Protein Albumin Urine Color Urine Appearance Urine pH Ur Specific [place] Urine Protein Urine Glucose (UA) Urine Ketones Urine Blood Urine Nitrite Ur Leukocyte Esterase Urine RBC Urine WBC Ur Squamous Epith Cells Urine Bacteria Urine Test NEGATIVE COVID-19 (LOIS) COVID-19 Clin Com Hepatitis C Ab (EIA) Nonreactive HIV 1&2 Ab/P24 Ag 4thGn Nonreactive 07/21/20 07/21/20 06:10 06:10 WBC 5.2 RBC 4.24 Hgb 11.3 L Hct 36.3 L MCV 85.6 MCH 26.7 L MCHC 31.1 RDW 13.9 Plt Count 390 MPV 9.6 Immature Gran % (Auto) Neut % (Auto) Lymph % (Auto) [place] % (Auto) Eos % (Auto) Baso % (Auto) Lymph # (Auto) [place] # (Auto) Eos # (Auto) Baso # (Auto) Abs Immat Gran (auto) Absolute Neuts (auto) Absolute Nucleated RBC 0.000 Nucleated RBC % (auto) 0.0 Hold Blue Top Sodium 139 Potassium 4.3 Chloride 106 Carbon Dioxide 23 Anion Gap 14 BUN 11 Creatinine 0.64 Estim Creat Clear Calc 128.4 Estimated GFR > 60 Random Glucose 93 Lactic Acid Calcium 8.1 L Total Bilirubin AST ALT Alkaline Phosphatase Total Protein Albumin Urine Color Urine Appearance Urine pH Ur Specific [place] Urine Protein Urine Glucose (UA) Urine Ketones Urine Blood Urine Nitrite Ur Leukocyte Esterase Urine RBC Urine WBC Ur Squamous Epith Cells Urine Bacteria Urine Test COVID-19 (LOIS) COVID-19 Clin Com Hepatitis C Ab (EIA) HIV 1&2 Ab/P24 Ag 4thGn Imaging Radiology Impressions: ITS Impressions Soft Tissue Neck CT 07/20/20 00:40 IMPRESSION: Extensive stranding in the superficial and deep fat of the left neck, consistent with cellulitis. Abnormal appearance of the left sternocleidomastoid muscle is suspicious for associated myositis. Though no discrete rim-enhancing collection is seen at this time, there is a region of more prominent low density in the lateral aspect of the lower sternocleidomastoid muscle measuring up to 5.2 cm in craniocaudal dimension which is concerning for phlegmonous change. Mental Status Exam Mental Status Exam Patient Orientation: Person, Place, Time and Situation Level of Consciousness: Awake and Alert Patient Behavior: Guarded, Cooperative and Anxious Mood Description: Anxious Affect Description: Flat Speech Pattern: Clear Thought Process: Intact Thought Content: positive for Intact Depressive Symptoms: Increased Irritability and Difficulty Sleeping Judgement: Fair Medications Medications Current Medications Generic Name Dose Route Start Last Admin Trade Name Freq PRN Reason Stop Dose Admin Albuterol Sulfate 2.5 mg 07/20/20 16:56 Albuterol Sulfate (0.083%) 2.5 Mg/3 Ml Vial.Neb INHALE ONCE PRN Wheezing Fentanyl 25 mcg 07/20/20 17:59 Fentanyl Citrate/Pf 100 Mcg/2 Ml Vial IVPUSH Q5M PRN Pain, Moderate (Pain Scale 4-6 Metronidazole 500 mg in 100 mls @ 100 mls/hr 07/20/20 20:00 07/21/20 05:32 Flagyl IV Infused Q8H K[facility] Infusion Levofloxacin 750 mg in 150 mls @ 100 mls/hr 07/20/20 21:00 07/21/20 01:12 Levaquin IV Infused Q24H [facility] Infusion Loperamide HCl 4 mg 07/20/20 13:32 Loperamide Hcl 2 Mg Capsule PO Q4H PRN diarrahe Lorazepam 1 mg 07/20/20 14:31 07/21/20 08:03 Lorazepam 0.5 Mg Tablet PO 1 mg Q4H PRN Administration Anxiety/reslessness Morphine Sulfate 2 mg 07/20/20 21:03 07/21/20 08:18 Morphine Sulfate 2 Mg/Ml Cartridge IVPUSH 2 mg Q4H PRN Administration Opiate Withdrawal Ondansetron HCl 4 mg 07/20/20 16:56 Ondansetron Hcl 4 Mg/2 Ml Vial IVPUSH ONCE PRN Nausea and Vomiting Ondansetron HCl 4 mg 07/20/20 17:59 Ondansetron Hcl 4 Mg/2 Ml Vial IVPUSH ONCE PRN Nausea and Vomiting Oxycodone HCl 10 mg 07/20/20 13:31 07/21/20 08:10 Oxycodone Hcl Immed Release 5 Mg Tablet PO 10 mg Q6H PRN Administration Pain and Fever Allergies Allergies Allergy/AdvReac Type Severity Reaction Status Date / Time Cephalosporins Allergy Severe ANAPHYLAXIS Verified 07/19/20 22:10 [CEPHALOSPORINS] cefaclor [From CECLOR] Allergy Mild AIRWAY Verified 07/19/20 22:10 CONSTRICTION bee stings Allergy Unknown Anaphylaxis Uncoded 07/19/20 22:10 Assessment & Plan Assessment & Plan (1) Opioid use disorder: Status: Acute Code(s): F11.99 - Opioid use, unspecified with unspecified opioid-induced disorder Recommendations: * Based on patient preference and current plan of care, starting methadone taper to address withdrawal sx during medical admissions is appropriate * EKG ordered * Will start with 20mg of methadone and if necessary can have additional 5-10mg tonight * Will continue to taper daily or every other day as tolerated * Can continue to have pain medications as needed for her neck, but should also decrease those as apporpirate * monitor for over sedation Greater than 50% of the session was spent on counseling and/or coordination of care
[2020-07-21 11:57] VITALS: BP 117/53; PULSE 118; RESP 16; TEMP 37.2; O2SAT 99
--- NOTE | 2020-07-21 12:54 | PC.NURSE ---
PT STATES SHE HAS HEROIN IN HER POSSESSION . THIS RN IN PT ROOM AND PT WILLING GAVE THIS RN 2 BAGS OF HEROIN . PT STATES SHE HAS NOT TAKING ANY AND SHE WANTED US TO HAVE IT SO SHE DOESN'T USE IT . THIS RN ADMINISTERED 1MG OF PO ATIVAN . SECURITY AT BEDSIDE TO CONT TO LOOK FOR ANY OTHER SUBSTANCES . MD MADE AWARE AND CHANGE PERSON MADE AWARE . METHADONE ORDERED AND AWAITING PHARMACY TO DELIVER . PT CALM AND COOPERATIVE .
--- NOTE | 2020-07-21 13:45 | PM.DS ---
DS: Providers Provider Date of admission: 07/20/20 03:47 Primary care physician: Unknown Physician Consults: 07/20/20 03:48 Consult to General Surgery Routine Consulting Provider: [facility] General Surgeons Reason for consultation: left neck cellulitis with underlying abscess Has provider been notified: No 07/20/20 11:41 Consult to Infectious Diseases Routine Consulting Provider: Infectious Disease Reason for consultation: left neck cellulitis with undelrying abscess Has provider been notified: No 07/20/20 13:23 Consult to Psychiatry Routine Consulting Provider: Brandy Perry Reason for consultation: HEOINE USE Has provider been notified: No DS: Diagnosis Discharge Diagnosis (1) Opioid use disorder: Status: Acute DS: Medications Discharge Medications Home Medications: Home Medications Medication Instructions Recorded Confirmed No Known Home Meds 07/20/20 07/20/20 DS: Summary Hospital Course Hospital Course: 30 y/o female with PMHx of IVDA (cocaine and heroin) who presented from home c/o left sided neck pain. uppon presentation patient was tachycardic, tachypneic. WBC of ~12.3, mildly elevated LFT', one dose of Zosyn and Vancomycin given per ED for broad coverage. Imaging of the neck obtained in the Ed shows left sided neck cellulitis with myositis. Decision for admission given. I and D was offered by ED but patient declined the procedure. Patient seen and examined face to face in the ED, ROS as above otherwise negative. PHMHx: IV drug abuse, cocaine and Heroin abuse. Hospital Course problem joyce sections: Patient was initially started on IV antibiotic Vanco, Flagyl, Levaquin and subsequently went for I&D of left anterior neck: In addition her blood culture is coming back staph aureus: Patient was seen by infectious disease and plan was to continue IV antibiotics. Also in addition patient was seen by psych-methadone added. Today patient has cocaine her belonging-she was told that cocaine can not be allowed in the hospital setting, subsequently she got upset and decided to leave against medical advice. Discussed with her also she has bacteremia and ekg changes . Plan of care discussed with her in detail with staff missed Karyn Patrick present , also discussed with her in detail risk of leaving against medical advice including endocarditis, sepsis and even . She understands the risks and still wants to leave. In addition patient was told to go to nearest hospital to get attention as soon as possible since she has neck wound from abscess and bacteremia. Also prescription of doxycycline was given after discussion with ID. Currently she denies any chest pain or shortness of breath or abdominal pain or fever or chills or any neurological symptoms. Above management discussed with the patient in detail length she understand and in agreement with the above plan, time spent 50 minutes and 50% time spent on counseling. Significant findings: As above. Procedures performed: None. Treatment and response: As above. Complications: None. Time Spent with Patient Time attestation: Total time spent providing and/or coordinating discharge services: Physical Exam Vital Signs: Vital Signs: Last Vital Signs Temp 98.9 F 07/21/20 11:57 Pulse 118 H 07/21/20 11:57 Resp 16 07/21/20 11:57 BP 117/53 L 07/21/20 11:57 Pulse Ox 99 07/21/20 11:57 Body Mass Index 22.8 physical exam: At exam is limited due to patient noncooperative. Heent: neck -left side has opening , no drainage , no still has swelling /erythema mild. Cvs: rrr, [id number] . res: clear to auscultation ,no rhonchii or wheezing abd: no rebound or guarding ,nt, bs present. neuro: axo3 , nonfocal. DS: Data Data Completed and Pending Labs on day of discharge: 07/19/20 22:52 Complete Blood Count Auto Diff Stat Hold Lt Blue - Possible Coag Stat Lactic Acid Stat 07/19/20 22:57 Piperacillin Sodium/Tazobactam [Zosyn] 3.375 gm 0.9 % Sodium Chloride [Ns] 50 ml IV ONCE vancomycin HCL 1,000 mg 0.9 % Sodium Chloride [Ns] 250 ml IV ONCE 07/19/20 22:59 diphenhydrAMINE HCL [Benadryl] 25 mg IVPUSH ONCE ONE 07/19/20 23:00 0.9 % Sodium Chloride [Ns] 1,000 ml IVCONT 999 mls/hr 07/19/20 23:04 Piperacillin Sodium/Tazobactam [Zosyn] 3.375 gm IV .STK-MED ONE 07/19/20 23:58 CMP [Comprehensive Met. Panel] Stat COVID-19 ID NOW (Sharif) Stat 07/20/20 00:40 CT soft tissue neck w con Stat 07/20/20 01:12 iohexoL 350 MG/ML [Omnipaque 350 MG/ML] 60 ml IV ONCE ONE 07/20/20 01:16 Lidocaine HCl 2 % MPF [Xylocaine 2 % MPF] 5 ml INFILTRATI ONCE ONE 07/20/20 01:35 vancomycin HCL 1,000 mg .ROUTE .STK-MED ONE 07/20/20 03:44 Transfer Order Routine 07/20/20 Breakfast NPO Diet 07/20/20 11:41 0.9 % Sodium Chloride Flush [NS Flush] 3 ml IVFLUSH QSHIFT 07/20/20 11:41 Vital Signs QSHIFT 07/20/20 12:00 Heparin Sodium,Porcine 5,000 unit SUBCUT Q8H vancomycin HCL 750 mg vancomycin HCL 500 mg 0.9 % Sodium Chloride [Ns] 250 ml IV BID 07/20/20 12:21 Transfer Order Routine 07/20/20 12:29 Basic Metabolic Panel Routine Complete Blood Count Auto Diff Routine 07/20/20 13:31 LORazepam [Ativan] 0.5 mg PO Q4H PRN 07/20/20 14:45 0.9 % Sodium Chloride [Ns] 500 ml IV 100 mls/hr 07/20/20 14:57 Ur Preg Test Stat 07/20/20 16:56 Vital Signs Q1H Vital Signs Q5MIN fentaNYL citrate/PF [Sublimaze] 25 mcg IVPUSH Q5M PRN fentaNYL citrate/PF [Sublimaze] 50 mcg IVPUSH Q5M PRN 07/20/20 16:58 HYDROmorphone HCl [Dilaudid] 0.25 mg IVPUSH Q5M PRN HYDROmorphone HCl [Dilaudid] 0.5 mg IVPUSH Q5M PRN 07/20/20 17:00 Lactated Ringers [Lr] 1,000 ml IVCONT 100 mls/hr metroNIDAZOLE/NS [Flagyl] 500 mg in 100 ml IV Q8H 07/20/20 17:10 vancomycin HCL 750 mg vancomycin HCL 500 mg 0.9 % Sodium Chloride [Ns] 250 ml IV ONCE 07/20/20 17:14 Lidocaine HCl 2 % MPF [Xylocaine 2 % MPF] 5 ml .ROUTE .STK-MED ONE propofoL [Diprivan] 200 mg IVPUSH .STK-MED ONE 07/20/20 17:17 Lidocaine HCl 2%/Epi 1:100,000 [Xylocaine 2 %-Epi 1:100,000] 20 ml .ROUTE .STK-MED ONE 07/20/20 17:19 Midazolam HCl/PF [Versed] 2 mg .ROUTE .STK-MED ONE 07/20/20 17:42 Ketorolac Tromethamine [Toradol] 30 mg .ROUTE .STK-MED ONE fentaNYL citrate/PF [Sublimaze] 50 mcg .ROUTE .STK-MED ONE propofoL [Diprivan] 200 mg IVPUSH .STK-MED ONE 07/20/20 17:59 Continuous pulse oximetry CONT Vital Signs Q1H Vital Signs Q5MIN Transfer Order Routine 07/20/20 18:00 levoFLOXacin/D5W [Levaquin] 750 mg in 150 ml IV Q24H 07/20/20 18:36 Continuous pulse oximetry CONT Vital Signs Q1H Vital Signs Q5MIN 07/20/20 18:37 Acetaminophen [Tylenol] 650 mg PO ONCE PRN oxyCODONE HCl Immed Release [Roxicodone] 10 mg PO ONCE PRN 07/20/20 18:41 Acetaminophen [Tylenol] 325 mg .ROUTE .STK-MED ONE 07/20/20 18:42 oxyCODONE HCl Immed Release [Roxicodone] 5 mg .ROUTE .STK-MED ONE 07/20/20 20:00 metroNIDAZOLE/NS [Flagyl] 500 mg in 100 ml IV Q8H 07/20/20 21:00 levoFLOXacin/D5W [Levaquin] 750 mg in 150 ml IV Q24H 07/20/20 21:15 0.9 % Sodium Chloride [Ns] 1,000 ml IVCONT 999 mls/hr 07/21/20 ECG 12 lead EKG Stat 07/21/20 06:10 Basic Metabolic Panel DAILY@0600 Complete Blood Count no Diff DAILY@0600 HIV Ab/Ag Routine Hepatitis C Antibody Routine 07/21/20 13:36 Amoxicillin/Potassium Clav [Augmentin] 875 mg PO ONCE ONE Laboratory Last Values WBC 5.2 X10*3/uL (4.8-10.8) 07/21/20 06:10 RBC 4.24 X10*6/uL (4.20-5.50) 07/21/20 06:10 Hgb 11.3 g/dl (12.0-16.0) L 07/21/20 06:10 Hct 36.3 % (37-47) L 07/21/20 06:10 MCV 85.6 fL (80-98) 07/21/20 06:10 MCH 26.7 pg (27.0-33.0) L 07/21/20 06:10 MCHC 31.1 g/dl (31.0-35.0) 07/21/20 06:10 RDW 13.9 % (11.0-16.0) 07/21/20 06:10 Plt Count 390 X10*3/uL (160-400) 07/21/20 06:10 MPV 9.6 fL (9.4-12.3) 07/21/20 06:10 Immature Gran % (Auto) 0.4 % (0.0-0.4) 07/20/20 12:29 Neut % (Auto) 62.4 % (45-73) 07/20/20 12:29 Lymph % (Auto) 25.4 % (20-40) 07/20/20 12:29 Piatt % (Auto) 9.7 % (2-11) 07/20/20 12:29 Eos % (Auto) 1.5 % (0-4) 07/20/20 12:29 Baso % (Auto) 0.6 % (0-2) 07/20/20 12:29 Lymph # (Auto) 2.1 X10*3/uL (1.2-4.9) 07/20/20 12:29 Piatt # (Auto) 0.8 X10*3/uL (0.1-1.2) 07/20/20 12:29 Eos # (Auto) 0.1 X10*3/uL (0.0-0.4) 07/20/20 12:29 Baso # (Auto) 0.1 X10*3/uL (0.0-0.2) 07/20/20 12:29 Abs Immat Gran (auto) 0.03 X10*3/uL (0.00-0.03) 07/20/20 12:29 Absolute Neuts (auto) 5.0 X10*3/uL (2.0-8.3) 07/20/20 12:29 Absolute Nucleated RBC 0.000 X10*3/uL (0.0-0.012) 07/21/20 06:10 Nucleated RBC % (auto) 0.0 /100WBC (0.0-0.2) 07/21/20 06:10 Hold Blue Top SEE NOTE 07/19/20 22:52 Sodium 139 mmol/L (135-145) 07/21/20 06:10 Potassium 4.3 mmol/l (3.3-5.1) 07/21/20 06:10 Chloride 106 mmol/L (96-108) 07/21/20 06:10 Carbon Dioxide 23 mmol/L (22-29) 07/21/20 06:10 Anion Gap 14 (-20) 07/21/20 06:10 BUN 11 mg/dL (9-16) 07/21/20 06:10 Creatinine 0.64 mg/dL (0.5-1.4) 07/21/20 06:10 Estim Creat Clear Calc 128.4 07/21/20 06:10 Estimated GFR > 60 07/21/20 06:10 Random Glucose 93 mg/dL (60-115) 07/21/20 06:10 Lactic Acid 0.9 mmol/L (0.5-2.0) 07/19/20 22:52 Calcium 8.1 mg/dL (8.4-10.2) L 07/21/20 06:10 Total Bilirubin 0.6 mg/dL (0.0-1.0) 07/19/20 23:58 AST 38 U/L (5-31) H 07/19/20 23:58 ALT 35 U/L (0-31) H 07/19/20 23:58 Alkaline Phosphatase 58 U/L (39-117) 07/19/20 23:58 Total Protein 6.8 g/dL (6.5-8.0) 07/19/20 23:58 Albumin 3.5 g/dL (3.5-5.0) 07/19/20 23:58 Urine Color YELLOW 07/20/20 08:52 Urine Appearance CLEAR 07/20/20 08:52 Urine pH 6.0 (5.0-8.0) 07/20/20 08:52 Ur Specific Justice 1.010 (1.005-1.025) 07/20/20 08:52 Urine Protein NEG MG/DL (NEG-TRACE) 07/20/20 08:52 Urine Glucose (UA) NEG MG/DL (NEG) 07/20/20 08:52 Urine Ketones NEG MG/DL (NEG) 07/20/20 08:52 Urine Blood TRACE (NEG) 07/20/20 08:52 Urine Nitrite NEG (NEG) 07/20/20 08:52 Ur Leukocyte Esterase NEG (NEG) 07/20/20 08:52 Urine RBC 0-2 /HPF (0) 07/20/20 08:52 Urine WBC 0-2 /HPF (0-4) 07/20/20 08:52 Ur Squamous Epith Cells 1+ /LPF 07/20/20 08:52 Urine Bacteria NONE /LPF 07/20/20 08:52 Urine Test NEGATIVE (NEGATIVE) 07/20/20 14:57 COVID-19 (LOIS) Negative (Negative) 07/19/20 23:58 COVID-19 Clin Com See Note 07/19/20 23:58 Hepatitis C Ab (EIA) Nonreactive (Nonreactive) 07/21/20 06:10 HIV 1&2 Ab/P24 Ag 4thGn Nonreactive (Nonreactive) 07/21/20 06:10 Preliminary micro results at discharge 07/20/20 Unknown Routine Culture - Preliminary Neck Staphylococcus aureus 07/19/20 22:52 Blood Culture - Preliminary Blood - Venous Staphylococcus aureus 07/19/20 22:52 Blood Culture - Preliminary Blood - Venous No growth after 24 hours. Discharge Plan Discharge Patient Disposition: Left Against Medical Advice Referrals: Physician,Unknown [Primary Care Provider] - Discharge Medications: New doxycycline hyclate 100 mg capsule 100 mg PO BID Qty: 28 RF: 0 Discharge Orders: Discharge Order (Routine); Ordered 07/21/20 Ordered By: Taylor Ambrose Diet: advance to usual diet Activity on Discharge: As tolerated Care Plan Goals: Patient came with neck abscess and found to have Staph in wound culture and bacteremia: Decided to go home against medical advise, risk of leaving against medical advise discussed in detail, including worsening of infection-sepsis, endocarditis and even . Patient still wants to leave. Patient was also given the option to go to nearest emergency room and get treatment as well as neck wound care as soon as possible. Patient was also given p.o. doxycycline prescription. Health Concerns: As above. Plan of Treatment: As above.
--- NOTE | 2020-07-21 13:55 | MHC.CM.PN ---
Pt leaving AMA. Unable to complete full CM assessment.
--- NOTE | 2020-07-21 14:24 | MHC.CM.PN ---
MESSAGE LEFT FOR DCF CONTACT MONIKA ONTIVEROS @ [phone] WITH A REQUEST TO CALL THIS CASH APPLICATIONS ANALYST BACK.
--- NOTE | 2020-07-21 15:41 | PC.NURSE ---
Patient stopped Ana KONG in the [place] and told her that her boyfriend had dropped off a bag with heroin in it. She stated she didn't want to take it. Security called. Room searched and drugs confiscated. Telesitter placed in room for safety and patient refused. Stated she wanted to leave AMA and shouldn't have said anything about the drugs. Spoke with patient about risks of leaving AMA but still insisting on leaving. Dr. Ambrose in to see patient. Patient stated we're not doing anything for her here and the care is awful. Dr. Ambrose and I spent over 20 minutes with patient trying to convince her not to leave. Patient proceed to remove own IV. Dr. Ambrose gave prescription for doxycycline and one dose given prior to leaving. instructed to take all abx as prescribed and to return with any worsening symptoms. Also offered more than once to reapply neck incision dressing that patient had removed but she refused. Dressing supplies sent with patient and encouraged to keep site clean and dry. AMA and discharge papers signed by patient.
== END 2020-07-21 15:41 | disposition left against medical advice (07) | DRG 364 ==
LOC: HO.ED 07-20 01:30 → HO.S3 07-20 10:00
PROVIDERS: Surgery; Admitting Provider Internal Medicine; Emergency Provider Internal Medicine; Visit Provider Internal Medicine
DX: L02.11 Cutaneous abscess of neck (principal); B95.61 Methicillin susceptible Staphylococcus aureus infection as the cause of diseases classified elsewhere; F11.10 Opioid abuse, uncomplicated; F17.210 Nicotine dependence, cigarettes, uncomplicated; Z71.6 Tobacco abuse counseling; Z59.0 Homelessness; Z20.828 Contact with and (suspected) exposure to other viral communicable diseases
CPT/HCPCS: 36415; 70491; 80048; 80053; 81001; 81003; 81025; 83605; 85025; 85027; 86803; 87040; 87071; 87077; 87147; 87186; 87205; 87389; 87635; 93005; 96361; 96365; 96367; 96375; 99024; 99284; 99285; J1200; J1885; J1956; J2250; J2270; J2543; J3010; J3370; Q9967

== ENCOUNTER 2021-06-12 22:25 | Emergency (ER) | payer OTHER, SELFPAY ==
--- NOTE | 2021-06-12 22:47 | PC.NURSE ---
Attempted to call pt, pt in bathroom. Security to bathroom door to check on pt however pt did not open door at that time, when attempted to call pt again for triage, pt was seen to leave by registration and belongings no longer seen in WR
== END 2021-06-12 22:47 | disposition left against medical advice (07) ==
PROVIDERS: Emergency Provider Emergency Medicine
DX: R68.89 Other general symptoms and signs (principal)

== ENCOUNTER 2022-12-17 15:35 | Emergency (ER) | payer OTHER, SELFPAY ==
[2022-12-17 15:39] VITALS: BP 115/70; BP 77/59; PULSE 110; PULSE 70; RESP 20; TEMP 36.8; O2SAT 96; BMI 19.2
--- NOTE | 2022-12-17 15:55 | PC.NURSE ---
Patient states wants to leave AMA. Blood pressure was low Marta FLORES notified. Spoke to patient about sepsis and that she is meeting the criteria.
--- NOTE | 2022-12-17 15:56 | ED.GENADULT ---
HPI - General Adult General Chief complaint: General Medical Stated complaint: hand infection Time Seen by Provider: 12/17/22 15:52 Source: patient, EMS, RN notes reviewed and old records reviewed History of Present Illness HPI narrative: 32-year-old female with a past medical history of asthma, IVDA, presenting to the ED complaining of infected left hand. Admits to finishing course of Bactrim recently. Patient agitated after her arrival via EMS, under the influence, writhing in stretcher, can't stand still. Would like to sign out AMA and go to [facility]. Will not discuss further history/ROS and will not allow this selling underwriter or another provider to examine her Related Data Previous Rx's Medication Instructions Recorded doxycycline hyclate 100 mg capsule 100 mg PO BID #28 caps 07/21/20 Allergies Allergy/AdvReac Type Severity Reaction Status Date / Time Cephalosporins Allergy Severe ANAPHYLAXIS Verified 07/19/20 22:10 [CEPHALOSPORINS] cefaclor [From CECLOR] Allergy Mild AIRWAY Verified 07/19/20 22:10 CONSTRICTION bee stings Allergy Unknown Anaphylaxis Uncoded 07/19/20 22:10 Review of Systems Review of Systems: ROS unobtainable due to patient noncompliance Yes all other systems are reviewed and are negative Constitutional: Constitutional: Reports as per HPI [facility] [place] Past Medical History Attestation statement: The following information was validated with the patient. Medical History Asthma Drug abuse IV drug abuse Social History Social History Household Members: None Housing: Homeless Do you presently have visiting nurse or other home services: No Cigarette Packs Per Day: 0.5 Cigarettes Per Day: 10.0 Years Smoked: 15 Second Hand Smoke Exposure: Yes Substance Use Type: Heroin service: No Current occupational status: unemployed Physical Exam ED Vital Signs: Vital Signs - 24 hr 12/17/22 15:39 Temperature 98.2 F Pulse Rate 110 H Respiratory Rate 20 Blood Pressure 77/59 L Pulse Oximetry 96 Oxygen Delivery Method Room Air BMI result Body Mass Index 19.2 Const General: no acute distress HENMT Head: Yes normal to inspection and Yes atraumatic Ears: hearing grossly normal bilaterally General nose exam: Normal external nose present Face and sinus: Yes normal facial exam Eyes General: appearance normal, both eyes and all related structures EOM: EOMs intact bilaterally Neck Neck: Yes normal visual inspection Resp Effort & Inspection: normal respiratory effort and no respiratory distress Skin Other: + diffuse skin picking Neuro General: tone normal and moves all extremities Gait exam (Neuro): Normal gait present Extrem General: Yes normal to inspection Medical Decision Making Medical Decision Making [facility] Narrative: 32-year-old female with a past medical history of asthma, IVDA, presenting to the ED complaining of infected left hand. Patient agitated after her arrival via EMS, under the influence, writhing in stretcher, can't stand still. Would like to sign out AMA and go to [facility]. Patient is awake and alert, oriented to make her own decisions, competent, understands risks of leaving including /sepsis. Discussed with patient abnormal vital signs and that she is currently meeting sepsis criteria, patient reports her blood pressure is always low, states she will leave this ED included [facility]. Pain may precautions discussed. Paperwork signed Please refer to course for remaining clinical decision making, interpretation of labs/imaging results, and discussions with consultants and/or family members. Differential Diagnosis Differential Diagnoses: The differential diagnosis associated with the presentation includes As above Admission/Observation Consideration of admission/observation: Escalation of care including admission/observation considered Lab Data [facility] Lab Attestation statement: I reviewed the patient's lab results. Radiology Impression Discussion of test interpretation with radiology: I have reviewed the radiologist's reading. External Record Review External record reviewed: Inpatient record, Office record, Outpatient record, Prior outpatient labs, Prior outpatient radiology, Primary care record and Outside ED record Discharge Plan Discharge Clinical Impression: Infected hand Patient Disposition: Left Against Medical Advice Additional Instructions: You are leaving against medical advice. This has the risk of , sepsis, permanent disability Your always welcome to return to our emergency department Prescriptions: No Action doxycycline hyclate 100 mg capsule 100 mg PO BID Qty: 28 0RF Referrals: Tari Waller MD [Emergency Provider] - Stand Alone Forms: Against Medical Advice
== END 2022-12-17 16:09 | disposition left against medical advice (07) ==
LOC: HO.ED 16:02
PROVIDERS: Emergency Provider Emergency Medicine
DX: L08.9 Local infection of the skin and subcutaneous tissue, unspecified (principal)
CPT/HCPCS: 99282

== ENCOUNTER 2023-03-20 03:26 | Emergency (ER) | payer OTHER, SELFPAY ==
--- NOTE | 2023-03-20 | ECG_ITS ---
Test Reason : OVERDOSE Blood Pressure : / mmHG Vent. Rate : 110 BPM Atrial Rate : 110 BPM P-R Int : 140 ms QRS Dur : 082 ms QT Int : 346 ms P-R-T Axes : 025 056 -12 degrees QTc Int : 468 ms Sinus tachycardia Nonspecific ST and T wave abnormality Abnormal ECG When compared with ECG of 21-JUL-2020 10:00, No significant change was found Referred By: Generic ED Physician Electronically Signed By:Blu Olivera
[2023-03-20 03:56] VITALS: BP 107/65; BP 120/80; PULSE 109; PULSE 99; RESP 19; TEMP 37.2; O2SAT 92; O2SAT 98; BMI 31.2
--- NOTE | 2023-03-20 04:06 | PC.NURSE ---
pt was medicated with 14 mg of narcan
[2023-03-20 06:00] VITALS: BP 106/56; PULSE 93; RESP 14; TEMP 36.8; O2SAT 97
--- NOTE | 2023-03-20 06:31 | PC.NURSE ---
pt slept during the shift
[2023-03-20 07:04] LABS: MANUAL DIFF FLAG NO
[2023-03-20 07:08] LABS: Basophils Absolute Auto 0.1 X10*3/uL (0.0-0.2); Eosinophils Absolute Auto 0.2 X10*3/uL (0.0-0.4); Eosinophils Percent Auto 1.6 % (0-4); Hematocrit 36.3 % (37.0-47.0); Hemoglobin 11.6 g/dl (12.0-16.0); Imm Gran Abs Auto 0.08 X10*3/uL (0.00-0.03); Imm Gran Pct Auto 0.9 % (0.0-0.4); Lymphocytes Absolute Auto 3.2 X10*3/uL (1.2-4.9); Lymphocytes Percent Auto 33.6 % (20-40); Mean Corpuscular Volume 87.7 fL (80.0-98.0); Mean Platelet Volume 9.2 fL (9.4-12.3); Monocytes Absolute Auto 1.1 X10*3/uL (0.1-1.2); Monocytes Percent Auto 11.5 % (2-11); Neutrophils Absolute Auto 4.9 x10*3/uL (2.0-8.3); Neutrophils Percent Auto 51.4 % (45-73); Platelet Count 295 X10*3/uL (160-400); Red Blood Count 4.14 X10*6/uL (4.20-5.50); Red Cell Distribution Width 14.4 % (11.0-16.0); White Blood Count 9.4 X10*3/uL (4.8-10.8)
--- NOTE | 2023-03-20 07:08 | ED.GENADULT ---
HPI - General Adult General Chief complaint: Overdose Stated complaint: Overdose Time Seen by Provider: 03/20/23 07:06 Source: patient and EMS Mode of arrival: EMS Limitations: no limitations History of Present Illness HPI narrative: 32-year-old female presents at with an accidental overdose on opioids. Patient got out of detox sinus rehabilitation yesterday. She purchased 2 bags of heroin, did 1 of the bags in overdose. She denies suicidal homicidal ideation. Her symptoms are severe. There is no clear relieving features. It was exacerbated by use of drugs. She reports depression, anxiety grief. Her was shot in December in the head and diet. She has 3 kids were currently with her grandmother. They are in a safe place. She completed 30 day program. Patient does have some mild nausea, no vomiting. She denies any other significant complaints at this time. Related Data Previous Rx's Medication Instructions Recorded doxycycline hyclate 100 mg capsule 100 mg PO BID #28 caps 07/21/20 Allergies Allergy/AdvReac Type Severity Reaction Status Date / Time Cephalosporins Allergy Severe ANAPHYLAXIS Verified 07/19/20 22:10 [CEPHALOSPORINS] cefaclor [From CECLOR] Allergy Mild AIRWAY Verified 07/19/20 22:10 CONSTRICTION bee stings Allergy Unknown Anaphylaxis Uncoded 07/19/20 22:10 Review of Systems Review of Systems: CONSTITUTIONAL: Denies weight loss, fever and chills. HEENT: Denies changes in vision and hearing. RESPIRATORY: Denies SOB and cough. CV: Denies palpitations no CP. GI: Denies abdominal pain, + nausea, -vomiting and diarrhea. : Denies dysuria and urinary frequency. MSK: Denies myalgia and joint pain. SKIN: Denies rash and pruritus. NEUROLOGICAL: Denies headache and syncope. PSYCHIATRIC: Denies recent changes in mood. Denies anxiety and depression. All other ROS are negative unless in HPI PMFSH Past Medical History Medical History Asthma Drug abuse IV drug abuse Social History Social History Household Members: None Housing: Homeless Do you presently have visiting nurse or other home services: No Alcohol intake: never Cigarette Packs Per Day: 0.5 Cigarettes Per Day: 10.0 Years Smoked: 15 Smoked in Last 30 Days: Yes Second Hand Smoke Exposure: Yes Substance Use Type: Heroin Advance Directives: No Advance Directives Information Provided: Yes Patient : No service: No Current occupational status: unemployed Physical Exam ED Vital Signs: Vital Signs - 24 hr 03/20/23 03:56 03/20/23 06:00 03/20/23 07:33 Temperature 98.9 F 98.2 F Pulse Rate 109 H 93 94 Respiratory Rate 19 14 20 Blood Pressure 107/65 106/56 L 112/54 L Pulse Oximetry 92 97 98 Oxygen Delivery Method Room Air Room Air Room Air BMI result Body Mass Index 31.2 GEN: Well developed, no acute distress, alert, oriented HEENT: Normocephalic, atraumatic, normal external ears, nose appears normal, no oropharyngeal edema or exudates Eyes: Normal to appearance Neck: Supple, no lymphadenopathy Respiratory: Talks in complete sentences, no respiratory distress, clear to auscultation bilaterally Cardiovascular: Regular rate and rhythm, no murmurs rubs or gallops Abdomen: Soft, nontender, nondistended, no guarding, no rebound Back: No CVA tenderness Extremities: No clubbing cyanosis or edema Neurologic: No focal neurologic deficits, cranial nerves 2-12 intact, strength is 5/5 bilaterally Skin: No rash Course Reevaluation(s) Reevaluation #1: Is 8:00 a.m. in the morning. Patient has been observed for several hours. She is alert, oriented, not suicidal or homicidal. She clearly has some anxiety and depression related symptoms. I have offered care team evaluation again. However, at this time pop, patient would like to be discharged. She does not appear to warrant an emergent evaluation. She has outpatient resource she is which she is made aware of. Patient will be discharged. I did inform her of her elevated liver function test and that she will need to follow up in 1-2 weeks. Time: 08:00 Medications Administered Generic Name Dose Route Start Last Admin Trade Name Freq PRN Reason Stop Dose Admin Sodium Chloride 1,000 mls @ 999 mls/hr 03/20/23 07:30 03/20/23 07:34 Ns IV 03/20/23 08:30 999 mls/hr .Q1H1M KATEY Administration Discontinued Medications Generic Name Dose Route Start Last Admin Trade Name Freq PRN Reason Stop Dose Admin Ondansetron HCl 4 mg 03/20/23 07:18 03/20/23 07:36 Ondansetron Hcl 4 Mg/2 Ml Vial IVPUSH 03/20/23 07:19 4 mg ONCE ONE Administration Medical Decision Making Medical Decision Making [facility] Narrative: 32-year-old female presents with an accidental overdose on opioids. Patient is currently alert, oriented, visibly upset. She is not suicidal homicidal. She pose no immediate threat to self or others. Differential diagnosis includes overdose, depression anxiety, PTSD, grief reaction, mood disorder. Plan will be to obtain routine laboratory analysis to make sure there are no significant metabolic abnormalities. Will provide patient with IV fluids and antiemetics for her nausea. I have offered to provide her with a care team consultation for her depression, anxiety specially around the recent of her . Patient is considering at this time. Differential Diagnosis Differential Diagnoses: The differential diagnosis associated with the presentation includes (See above) Admission/Observation Consideration of admission/observation: Escalation of care including admission/observation considered Lab Data [facility] Lab Attestation statement: I reviewed the patient's lab results. 03/20/23 06:59 03/20/23 06:59 Labs: Lab Results 03/20/23 03/20/23 Range/Units 06:59 06:59 WBC 9.4 (4.8-10.8) X10*3/uL RBC 4.14 L (4.20-5.50) X10*6/uL Hgb 11.6 L (12.0-16.0) g/dl Hct 36.3 L (37.0-47.0) % MCV 87.7 (80.0-98.0) fL MCH 28.0 (27.0-33.0) pg MCHC 32.0 (31.0-35.0) g/dl RDW 14.4 (11.0-16.0) % Plt Count 295 (160-400) X10*3/uL MPV 9.2 L (9.4-12.3) fL Immature Gran % (Auto) 0.9 H (0.0-0.4) % Neut % (Auto) 51.4 (45-73) % Lymph % (Auto) 33.6 (20-40) % [place] % (Auto) 11.5 H (2-11) % Eos % (Auto) 1.6 (0-4) % Baso % (Auto) 1.0 (0-2) % Lymph # (Auto) 3.2 (1.2-4.9) X10*3/uL [place] # (Auto) 1.1 (0.1-1.2) X10*3/uL Eos # (Auto) 0.2 (0.0-0.4) X10*3/uL Baso # (Auto) 0.1 (0.0-0.2) X10*3/uL Abs Immat Gran (auto) 0.08 H (0.00-0.03) X10*3/uL Absolute Neuts (auto) 4.9 (2.0-8.3) x10*3/uL Absolute Nucleated RBC 0.000 (0.0-0.012) X10*3/uL Nucleated RBC % (auto) 0.0 (0.0-0.2) /100WBC Sodium 141 (135-145) mmol/L Potassium 4.0 (3.3-5.1) mmol/L Chloride 111 H (96-108) mmol/L Carbon Dioxide 22 (22-29) mmol/L Anion Gap 12 (12-20) BUN 22 H (9-16) mg/dL Creatinine 0.77 (0.5-1.4) mg/dL Estim Creat Clear Calc 96.1 Estimated GFR > 60 Random Glucose 81 (60-115) mg/dL Calcium 8.2 L (8.4-10.2) mg/dL Total Bilirubin 0.4 (0.0-1.0) mg/dL AST 116 H (5-31) U/L ALT 218 H (0-31) U/L Alkaline Phosphatase 96 (39-117) U/L Total Protein 7.0 (6.5-8.0) g/dL Albumin 3.6 (3.5-5.0) g/dL Independent Interpretation I performed an independent interpretation of an: EKG (Sinus tachycardia nonspecific FC T-wave changes not, no acute ST elevations depressions, normal QTC, no significant changes compared to 07/21/2020) Independent Historian Clinical information obtained from an independent historian. History obtained from or confirmed by: EMS Chronic Conditions Patient?s care impacted by: Other (Drug abuse) Discharge Plan Discharge Clinical Impression: Opioid use disorder, Drug overdose, Elevated LFTs Patient Disposition: Still a Patient Instructions: Naloxone (Into the nose), Adult Overdose (ED), Narcotic Use Disorder (ED) Additional Instructions: You will need to follow up in 1-2 weeks with her elevated liver enzymes. Prescriptions: No Action doxycycline hyclate 100 mg capsule 100 mg PO BID Qty: 28 0RF Referrals: [facility] [Provider Group]
[2023-03-20 07:21] LABS: Alanine Aminotransferase 218 U/L (0-31); Albumin Level 3.6 g/dL (3.5-5.0); Alkaline Phosphatase 96 U/L (39-117); Anion Gap 12 (12-20); Aspartate Amino Transferase 116 U/L (5-31); Bilirubin Total 0.4 mg/dL (0.0-1.0); Blood Urea Nitrogen 22 mg/dL (9-16); Calcium 8.2 mg/dL (8.4-10.2); Carbon Dioxide 22 mmol/L (22-29); Chloride 111 mmol/L (96-108); Creatinine Clr Calc Pharmacy 96.1; Estimated Glomerular Filt Rate > 60; Glucose Random 81 mg/dL (60-115); Sodium 141 mmol/L (135-145)
[2023-03-20 07:33] VITALS: BP 112/54; PULSE 94; RESP 20; O2SAT 98
[2023-03-20] MEDS: 0.9 % Sodium Chloride 1,000 ML 999 ML IV (07:34)
[2023-03-20] MEDS: ondansetron HCL 4 MG/2 ML VIAL IVPUSH (07:36)
[2023-03-20] MEDS: Naloxone HCl Nasal TAKE HOME 4 MG SPRAY 8 MG NOSTRILALT (08:32)
== END 2023-03-20 08:33 | disposition home or self-care (01) ==
PROVIDERS: Emergency Provider Emergency Medicine
DX: T40.1X1A Poisoning by heroin, accidental (unintentional), initial encounter (principal); R11.2 Nausea with vomiting, unspecified; R00.0 Tachycardia, unspecified; F17.210 Nicotine dependence, cigarettes, uncomplicated; Z71.6 Tobacco abuse counseling; Z79.899 Other long term (current) drug therapy
CPT/HCPCS: 36415; 80053; 85025; 93005; 96361; 96374; 99284; 99285; J2405

== ENCOUNTER → 2023-03-20 03:41 | Outpatient (BNV) | payer OTHER, SELFPAY | PROVIDERS: Emergency Provider Emergency Medicine; Visit Provider Internal Medicine Cardiovascular Disease | DX: R00.0 Tachycardia, unspecified (principal) | CPT/HCPCS: 93010 ==

== ENCOUNTER 2023-03-20 18:05 | Emergency (ER) | payer OTHER, SELFPAY | END 2023-03-20 23:09 | disposition left against medical advice (07) | LOC: HO.ED 23:04 | PROVIDERS: Emergency Provider Emergency Medicine | DX: R07.89 Other chest pain (principal) ==

== ENCOUNTER 2023-04-11 22:03 | Emergency (ER) | payer OTHER, SELFPAY ==
[2023-04-11 22:14] VITALS: BP 108/68; PULSE 78; O2SAT 98
[2023-04-11 22:31] VITALS: BP 97/42; PULSE 92; RESP 17; TEMP 36.7; O2SAT 96; BMI 23.7
--- NOTE | 2023-04-11 22:43 | ED.OVERDOSE ---
HPI - Overdose General Chief Complaint: Overdose Stated Complaint: OVERDOSE 8MG NARCAN Time Seen by Provider: 04/11/23 22:10 Source: patient Mode of arrival: EMS Limitations: no limitations History of Present Illness HPI Narrative: Patient's history of substance abuse released from the skilled nursing today and found semi-responsive in alley with her friend was given 8 mg of Narcan by the passerby and another 4 mg by the PD patient denied use of opiates says that she took her 2 tablets of gabapentin after arrival in the ED patient been very sleepy denies any other overdose Related Data Previous Rx's Medication Instructions Recorded doxycycline hyclate 100 mg capsule 100 mg PO BID #28 caps 07/21/20 Allergies Allergy/AdvReac Type Severity Reaction Status Date / Time Cephalosporins Allergy Severe ANAPHYLAXIS Verified 07/19/20 22:10 [CEPHALOSPORINS] cefaclor [From CECLOR] Allergy Mild AIRWAY Verified 07/19/20 22:10 CONSTRICTION bee stings Allergy Unknown Anaphylaxis Uncoded 07/19/20 22:10 Review of Systems Review of Systems: Yes all other systems are reviewed and are negative REPLACED BY [facility] Past Medical History Medical History Asthma Drug abuse IV drug abuse Social History Social History Household Members: None Housing: Homeless Do you presently have visiting nurse or other home services: No Alcohol intake: never Cigarette Packs Per Day: 0.5 Cigarettes Per Day: 10.0 Years Smoked: 15 Smoked in Last 30 Days: Yes Second Hand Smoke Exposure: Yes Use of substances other than those prescribed or required for medical reasons: Yes Substance Use Type: Heroin Substance Use Frequency: Chronic Longstanding Last Used Substance: Just Prior to Admission Any prior treatment program specific to substance use: Yes Advance Directives: No Advance Directives Information Provided: No service: No Current occupational status: unemployed Physical Exam Vital Signs: Vital Signs: Last Vital Signs Temp 98.0 F 04/11/23 22:31 Pulse 84 04/11/23 23:18 Resp 12 04/11/23 23:18 BP 100/58 L 04/11/23 23:18 Pulse Ox 95 04/11/23 23:18 O2 Del Method Room Air 04/11/23 23:18 BMI result Body Mass Index 23.7 Appearance: Alert. Oriented X3. No acute distress. Eyes: PERRLA, No Nystagmus ENT: Pharynx normal. Oral Mucosa moist atraumatic normocephalic Neck: Normal inspection. Neck supple. CVS: Normal heart rate and rhythm. Pulses normal. Respiratory: No respiratory distress. Equal air entry bilateral, no wheezing/rales/rhonchi Abdomen: Soft and nontender. Bowel sounds are present, no mass palpable, no CVA tenderness Skin: Skin warm and dry. Normal skin color. Normal skin turgor. Extremities: No lower extremity edema. No calf tenderness , IVDA track shelton+ Neuro: Oriented X 3. No motor deficit. No sensory deficit.No cerebellar signs , cranial nerves II-XII intact Medical Decision Making Medical Decision Making MDM Narrative: Patient clinically with opiate overdose sleeping at this time will discharge home in a.m. if vitals are stable Discharge Plan Discharge Clinical Impression: Polysubstance abuse Patient Disposition: Still a Patient Instructions: Polysubstance Abuse (ED) Additional Instructions: Stop using drugs/non-prescribed medications Follow-up with detox Prescriptions: No Action doxycycline hyclate 100 mg capsule 100 mg PO BID Qty: 28 0RF
[2023-04-11 23:18] VITALS: BP 100/58; PULSE 84; RESP 12; O2SAT 95
--- NOTE | 2023-04-12 00:27 | PC.NURSE ---
Pt aox4 resting at the bedside. VSS. Breaths are even regular and unlabored. Reports I smoked one bag and it must have had something in it. Denies SI/HI and reports overdose was accidental. Water provided. Pt able to swallow with no difficulty or aspiration. Reports hip and LBP, 01/10. No trauma reported. Will continue to monitor.
--- NOTE | 2023-04-12 01:16 | PC.NURSE ---
Pt is unable to provide urine sample at this time. Water provided.
[2023-04-12 02:09] VITALS: BP 96/51; PULSE 75; RESP 12; O2SAT 96
--- NOTE | 2023-04-12 02:09 | PC.NURSE ---
Ambulatory with a steady gait to the bathroom.
[2023-04-12 02:51] LABS: Amphetamine Screen Urine Not Detected (Not Detect); Barbiturates, Urine Not Detected (Not Detect); Benzodiazepines Screen Urine POSITIVE (Not Detect); Cannabinoid Screen Urine Not Detected (Not Detect); Cocaine Screen Urine POSITIVE (Not Detect); Fentanyl, urine POSITIVE (Not Detect); Opiate Screen Urine Not Detected (Not Detect); Phencyclidine Screen Urine Not Detected (Not Detect)
[2023-04-12 04:00] VITALS: PULSE 68; RESP 12
--- NOTE | 2023-04-12 05:07 | PC.NURSE ---
Pt sleeping at the bedside in no apparent distress. Breaths are even regular and unlabored with equal chest rises. VSS. Pending disposition. Will continue to monitor.
[2023-04-12 06:01] VITALS: BP 91/61; PULSE 71; RESP 16; TEMP 37; O2SAT 97
--- NOTE | 2023-04-12 07:23 | PC.NURSE ---
report received from davida block. pt is sleeping resp even and unlabored. pt to be d/c'd home today.
[2023-04-12 07:39] VITALS: BP 96/55; PULSE 67; RESP 12; TEMP 36.6; O2SAT 99
[2023-04-12 08:34] VITALS: BP 99/58; PULSE 77; RESP 12; TEMP 36.6; O2SAT 98
--- NOTE | 2023-04-12 08:40 | PC.NURSE ---
pt is a/o x 3 no sob/miles noted speaks in full sentences. resp even and unlabored. pt denies any si/hi. pt aware of plan of care.
--- NOTE | 2023-04-12 09:08 | PC.NURSE ---
pt is eating breakfast.
--- NOTE | 2023-04-12 10:31 | PC.NURSE ---
pt seen by power and recovery superintendent. pt aware of plan of care.
[2023-04-12 11:31] VITALS: BP 90/51; PULSE 71; RESP 16; TEMP 37; O2SAT 99
[2023-04-12] MEDS: Naloxone HCl Nasal TAKE HOME 4 MG SPRAY 8 MG NOSTRILALT (11:45)
--- NOTE | 2023-04-12 11:47 | HO.SUDE ---
This keno writer met with patient to complete SUDE, pt presented to ED post overdose. Pt was in bathroom, this keno writer knocked on door and spoke w/ pt, door ajar. Pt was alert, oriented, easy to engage. Pt reports had been at [facility], stable on 8mg Subutex daily. Pt reports released from skilled nursing yesterday, was unable to obtain BUP rx at [facility] due to not having ID. Pt reports presented pharmacist with [facility] ID and [facility] pharmacy did not accept the ID. Pt reports has not used illicit opiates, as stable on Subutex [employer]. Pt reports smoked CRACK/HARI prior to overdose and being found unresponsive. This keno writer and patient discussed harm reduction, reviewed fentanyl in stimulant supply. Discussed plan of care, RN RICHARD obtained copy of pts ID in [facility] records, copy of ID given to pt to present at [facility] pharmacy to pickling tank operator BUP films. Reviewed with patient walk in hours at [facility] for pt to continue on BUP films. Pt verbalized understanding. Encouraged pt to follow up with [facility] for safe use supplies, hygiene products, clothes. Pt reports is unstably housed. This keno writer called [facility] to advocate for pt to receive BUP rx with photo ID copy and hospital d/c paperwork. [facility] reports need ID not copy. ED Provider aware of plan.
== END 2023-04-12 11:45 | disposition home or self-care (01) ==
PROVIDERS: Emergency Provider Internal Medicine
DX: T42.6X1A Poisoning by other antiepileptic and sedative-hypnotic drugs, accidental (unintentional), initial encounter (principal); Y92.9 Unspecified place or not applicable; F17.210 Nicotine dependence, cigarettes, uncomplicated; Z71.6 Tobacco abuse counseling; Z79.899 Other long term (current) drug therapy
CPT/HCPCS: 80307; 99285

== ENCOUNTER 2023-06-25 09:12 | Emergency (ER) | payer OTHER, SELFPAY ==
[2023-06-25 09:24] VITALS: BP 130/78; BP 92/58; PULSE 72; PULSE 78; RESP 18; TEMP 36.9; O2SAT 98; O2SAT 99; BMI 21.9
--- NOTE | 2023-06-25 09:34 | ED.GENADULT ---
HPI - General Adult General Chief complaint: ETOH/Substance Use Stated complaint: NAUSEA/DIARRHEA D/T HEROIN WITHDRAWAL FROM [employer] Time Seen by Provider: 06/25/23 09:20 Source: patient, EMS and police Mode of arrival: EMS Limitations: no limitations History of Present Illness HPI narrative: patient spent the night in long term, currently n/v/d secondary to opiate and alcohol withdrawal Related Data Previous Rx's Medication Instructions Recorded doxycycline hyclate 100 mg capsule 100 mg PO BID #28 caps 07/21/20 Allergies Allergy/AdvReac Type Severity Reaction Status Date / Time Cephalosporins Allergy Severe ANAPHYLAXIS Verified 07/19/20 22:10 [CEPHALOSPORINS] cefaclor [From CECLOR] Allergy Mild AIRWAY Verified 07/19/20 22:10 CONSTRICTION bee stings Allergy Unknown Anaphylaxis Uncoded 07/19/20 22:10 Review of Systems Review of Systems: Yes all other systems are reviewed and are negative Neurologic: Denies Sensory deficit (Neuro) PMFSH Past Medical History Medical History IV drug abuse Drug abuse Asthma Social History Social History Household Members: None Housing: Homeless Do you presently have visiting nurse or other home services: No Alcohol intake: never Cigarette Packs Per Day: 0.5 Cigarettes Per Day: 10.0 Years Smoked: 15 Smoked in Last 30 Days: Yes Second Hand Smoke Exposure: Yes Use of substances other than those prescribed or required for medical reasons: Yes Substance Use Type: Heroin, Opiates and Prescription Drugs Advance Directives: No Advance Directives Information Provided: No Patient : No service: No Current occupational status: unemployed Physical Exam ED Vital Signs: Vital Signs - 24 hr 06/25/23 09:24 06/25/23 11:19 06/25/23 12:15 Temperature 98.5 F Pulse Rate 78 80 65 Respiratory Rate 18 18 16 Blood Pressure 92/58 L 101/61 121/66 Pulse Oximetry 99 100 100 Oxygen Delivery Method Room Air Room Air Room Air BMI result Body Mass Index 21.9 Const Other: very thin unkept female looking old than stated age, vomiting and diarrhea Nutritional Appearance: cachectic Orientation/consciousness: oriented to person and patient oriented x3 Limitations: no limitations HENMT Head: Yes normal to inspection Ears: external ears normal General nose exam: Normal external nose present Mouth: Normal oral and palatal mucosa present and oropharynx normal Throat: Yes posterior oropharynx normal Eyes General: appearance normal, both eyes and all related structures Neck Neck: Yes normal visual inspection Chest Chest palpation & inspection: normal inspection of the chest Resp Auscultation: clear to auscultation bilaterally Cardio Jugular venous distension: no JVD Rate: regular rate Rhythm: regular rhythm Heart sounds: S1 normal heart sound present and S2 normal heart sound present GI Inspection: Yes normal to inspection Palpation (GI): Soft to palpation, nontender and No hepatosplenomegaly present Auscultation: normal bowel sounds General: Yes no CVA tenderness Back/Spine/Pelvis Back: no CVA tenderness Skin General skin exam: no rashes or lesions noted Neuro General: oriented to person and patient oriented x3 Cranial nerves: Yes CN's II-XII intact bilaterally Motor exam (neuro): 5/5 motor strength present throughout Sensory Exam: No Sensory deficit (Neuro) Extrem General: Yes normal to inspection Psych Appearance: grossly normal Course Reevaluation(s) Reevaluation #1: patient improved with suboxone and ativan, hydrated will dc to police custody Time: 12:15 Medications Administered Discontinued Medications Generic Name Dose Route Start Last Admin Trade Name Freq PRN Reason Stop Dose Admin Buprenorphine/Naloxone 1 film 06/25/23 09:31 06/25/23 09:54 Buprenorphine/Naloxone 4/1 Mg Film SUBLINGUAL 06/25/23 09:32 1 film ONCE ONE Administration Sodium Chloride 500 mls @ 250 mls/hr 06/25/23 09:45 06/25/23 12:05 Ns IVCONT 06/25/23 11:44 Infused .Q2H KATEY Infusion Lorazepam 1 mg 06/25/23 09:31 06/25/23 09:54 Lorazepam 1 Mg Tablet PO 06/25/23 09:32 1 mg ONCE ONE Administration Ondansetron HCl 4 mg 06/25/23 09:32 06/25/23 09:54 Ondansetron Hcl 4 Mg/2 Ml Vial IVPUSH 06/25/23 09:33 4 mg ONCE ONE Administration Medical Decision Making Differential Diagnosis Differential Diagnoses: The differential diagnosis associated with the presentation includes (heroine withdrawal, alcohol withdrawal, vomiting, diarrhea were all considered) Admission/Observation Consideration of admission/observation: Escalation of care including admission/observation considered (upon arrival patient considered for admission) Lab Data 06/25/23 09:46 06/25/23 09:46 Labs: Lab Results 06/25/23 06/25/23 Range/Units 09:46 11:44 WBC 5.9 (4.8-10.8) X10*3/uL RBC 4.69 (4.20-5.50) X10*6/uL Hgb 13.2 (12.0-16.0) g/dl Hct 39.8 (37.0-47.0) % MCV 84.9 (80.0-98.0) fL MCH 28.1 (27.0-33.0) pg MCHC 33.2 (31.0-35.0) g/dl RDW 13.6 (11.0-16.0) % Plt Count 332 (160-400) X10*3/uL MPV 9.2 L (9.4-12.3) fL Immature Gran % (Auto) 0.3 (0.0-0.4) % Neut % (Auto) 55.7 (45-73) % Lymph % (Auto) 30.2 (20-40) % [place] % (Auto) 11.4 H (2-11) % Eos % (Auto) 1.9 (0-4) % Baso % (Auto) 0.5 (0-2) % Lymph # (Auto) 1.8 (1.2-4.9) X10*3/uL [place] # (Auto) 0.7 (0.1-1.2) X10*3/uL Eos # (Auto) 0.1 (0.0-0.4) X10*3/uL Baso # (Auto) 0.0 (0.0-0.2) X10*3/uL Abs Immat Gran (auto) 0.02 (0.00-0.03) X10*3/uL Absolute Neuts (auto) 3.3 (2.0-8.3) x10*3/uL Absolute Nucleated RBC 0.000 (0.0-0.012) X10*3/uL Nucleated RBC % (auto) 0.0 (0.0-0.2) /100WBC Sodium 140 (135-145) mmol/L Potassium 3.7 (3.3-5.1) mmol/L Chloride 106 (96-108) mmol/L Carbon Dioxide 21 L (22-29) mmol/L Anion Gap 17 (12-20) BUN 18 H (9-16) mg/dL Creatinine 0.65 (0.5-1.4) mg/dL Estim Creat Clear Calc 118.6 Estimated GFR > 60 Random Glucose 96 (60-115) mg/dL Calcium 11.1 H D (8.4-10.2) mg/dL Total Bilirubin 0.7 (0.0-1.0) mg/dL AST 83 H (5-31) U/L ALT 106 H (0-31) U/L Alkaline Phosphatase 72 (39-117) U/L Total Protein 7.9 (6.5-8.0) g/dL Albumin 4.1 (3.5-5.0) g/dL Urine Color Yellow Urine Appearance Clear Urine pH 5.5 (5.0-9.0) Ur Specific [place] 1.025 (1.005-1.025) Urine Protein Negative (Neg-Trace) mg/dL Urine Glucose (UA) Negative (Negative) mg/dL Urine Ketones 80 (Negative) mg/dL Urine Blood Negative (Negative) Urine Nitrite Negative (Negative) Ur Leukocyte Esterase Trace H (Negative) Urine RBC 0-2 (0-2) /HPF Urine WBC 0-5 (0-5) /HPF Ur Squamous Epith Cells 0-2 (0-2) /HPF Urine Bacteria None Seen (None Seen) Hyaline Casts 0-2 (0-2) /LPF Urine Test NEGATIVE (NEGATIVE) Independent Historian Clinical information obtained from an independent historian. History obtained from or confirmed by: EMS and Other (police) Tests considered The following testing was considered but not selected: Ct of abdomen considered but patient with obvious narcotic withdrawal Prescription Management I considered prescription management with: Antibiotic (no bacterial infection found) Chronic Conditions Patient?s care impacted by: Other (IV drug abuse and alcohol abuse) Social Determinants Patient?s care significantly limited by Social Determinants of Health including: Alcoholism and drug addiction in family Discharge Plan Discharge Clinical Impression: Opioid use disorder, Alcohol withdrawal syndrome, Opiate withdrawal Patient Disposition: Home, Self-Care Instructions: Opioid Use Disorder (ED), Opioid Withdrawal (ED), Polysubstance Abuse (ED) Prescriptions: No Action doxycycline hyclate 100 mg capsule 100 mg PO BID Qty: 28 0RF Referrals: Physician,Unknown J [Primary Care Provider] - 5 days
[2023-06-25] MEDS: 0.9 % Sodium Chloride 500 ML 250 ML IVCONT (09:49)
[2023-06-25 09:51] LABS: MANUAL DIFF FLAG NO
[2023-06-25 09:53] LABS: Basophils Percent Auto 0.5 % (0-2); Eosinophils Absolute Auto 0.1 X10*3/uL (0.0-0.4); Eosinophils Percent Auto 1.9 % (0-4); Hematocrit 39.8 % (37.0-47.0); Hemoglobin 13.2 g/dl (12.0-16.0); Imm Gran Abs Auto 0.02 X10*3/uL (0.00-0.03); Imm Gran Pct Auto 0.3 % (0.0-0.4); Lymphocytes Absolute Auto 1.8 X10*3/uL (1.2-4.9); Lymphocytes Percent Auto 30.2 % (20-40); Mean Corpuscular HGB Conc 33.2 g/dl (31.0-35.0); Mean Corpuscular Hemoglobin 28.1 pg (27.0-33.0); Mean Corpuscular Volume 84.9 fL (80.0-98.0); Mean Platelet Volume 9.2 fL (9.4-12.3); Monocytes Absolute Auto 0.7 X10*3/uL (0.1-1.2); Monocytes Percent Auto 11.4 % (2-11); Neutrophils Absolute Auto 3.3 x10*3/uL (2.0-8.3); Neutrophils Percent Auto 55.7 % (45-73); Platelet Count 332 X10*3/uL (160-400); Red Blood Count 4.69 X10*6/uL (4.20-5.50); Red Cell Distribution Width 13.6 % (11.0-16.0); White Blood Count 5.9 X10*3/uL (4.8-10.8)
[2023-06-25] MEDS: ondansetron HCL 4 MG/2 ML VIAL IVPUSH (09:54)
[2023-06-25] MEDS: LORazepam 1 MG TABLET PO ×2 (09:54→12:31)
[2023-06-25] MEDS: Buprenorphine/Naloxone 4/1 mg FILM 1 FILM SUBLINGUAL (09:54)
[2023-06-25 10:38] LABS: Alanine Aminotransferase 106 U/L (0-31); Albumin Level 4.1 g/dL (3.5-5.0); Alkaline Phosphatase 72 U/L (39-117); Anion Gap 17 (12-20); Aspartate Amino Transferase 83 U/L (5-31); Bilirubin Total 0.7 mg/dL (0.0-1.0); Blood Urea Nitrogen 18 mg/dL (9-16); Calcium 11.1 mg/dL (8.4-10.2); Carbon Dioxide 21 mmol/L (22-29); Chloride 106 mmol/L (96-108); Creatinine Clr Calc Pharmacy 118.6; Estimated Glomerular Filt Rate > 60; Glucose Random 96 mg/dL (60-115); Potassium 3.7 mmol/L (3.3-5.1); Sodium 140 mmol/L (135-145); Total Protein 7.9 g/dL (6.5-8.0)
[2023-06-25 11:19] VITALS: BP 101/61; PULSE 80; RESP 18; O2SAT 100
[2023-06-25 11:53] LABS: Appearance Urine Clear; Color Urine Yellow; Glucose Urine UA Negative (Negative); Leukocyte Esterase Urine Trace (Negative); Nitrite Urine Negative (Negative); PH 5.5 (5.0-9.0); Specific Gravity - Urine 1.025 (1.005-1.025); UMIC TRIGGER UACC YES; Urine Blood Negative (Negative); Urine Ketones 80 mg/dL (Negative); Urine Protein Negative (Neg-Trace)
[2023-06-25 11:55] LABS: Bacteria Urine None Seen (None Seen); Hyaline Casts Urine 0-2 /LPF (0-2); RBC Urine 0-2 /HPF (0-2); Squamous Epithelial Cell Urine 0-2 /HPF (0-2); UPreg QC Valid YES; Urine Pregnancy NEGATIVE (NEGATIVE); WBC Urine 0-5 /HPF (0-5)
[2023-06-25 12:15] VITALS: BP 121/66; PULSE 65; RESP 16; O2SAT 100
== END 2023-06-25 12:39 | disposition home or self-care (01) ==
PROVIDERS: Emergency Provider Emergency Medicine
DX: R11.2 Nausea with vomiting, unspecified (principal); F11.23 Opioid dependence with withdrawal; F10.239 Alcohol dependence with withdrawal, unspecified; Y90.9 Presence of alcohol in blood, level not specified; F17.210 Nicotine dependence, cigarettes, uncomplicated; Z71.6 Tobacco abuse counseling; Z79.899 Other long term (current) drug therapy
CPT/HCPCS: 36415; 80053; 81001; 81025; 85025; 96361; 96374; 99284; J2405

== ENCOUNTER 2023-10-15 15:35 | Emergency (ER) | payer OTHER, SELFPAY ==
[2023-10-15 15:57] VITALS: BP 104/68; PULSE 95; O2SAT 95
[2023-10-15 16:09] VITALS: BP 103/53; PULSE 92; RESP 16; TEMP 36.9; O2SAT 97; BMI 23.4
[2023-10-15 16:18] LABS: Glucose, Whole Blood 101 mg/dL (60-115)
--- NOTE | 2023-10-15 16:29 | ED.GENADULT ---
HPI - General Adult General Chief complaint: ETOH/Substance Use Stated complaint: sepsis,used heroine,hypoglycemic,15g oral glucose Time Seen by Provider: 10/15/23 16:00 History of Present Illness HPI narrative: Patient 33-year-old female with a history of opiate abuse, cocaine abuse. Last used cocaine approximately 6 hours prior. Last use opiate just prior to arrival. Patient's prefer to do IV drugs. Presented today with worrying that she has got an abscess. Patient complain of swelling to the face. Issues with bilateral upper extremity. There is no fever no chills. No coughing or congestion. Patient was noted to have a low sugar. Was given glucose prior to arrival. Denies any chest pain. Denies any pain on urination. Denies any alcohol. Somewhat feels agitated. Related Data Previous Rx's Medication Instructions Recorded doxycycline hyclate 100 mg capsule 100 mg PO BID #28 caps 07/21/20 doxycycline hyclate 100 mg capsule 100 mg PO BID cough 7 days #14 caps 10/15/23 Allergies Allergy/AdvReac Type Severity Reaction Status Date / Time Cephalosporins Allergy Severe ANAPHYLAXIS Verified 07/19/20 22:10 [CEPHALOSPORINS] cefaclor [From CECLOR] Allergy Mild AIRWAY Verified 07/19/20 22:10 CONSTRICTION bee stings Allergy Unknown Anaphylaxis Uncoded 07/19/20 22:10 Review of Systems Review of Systems: Positive cocaine positive heroin positive redness to the face redness to the arm Yes all other systems are reviewed and are negative [facility] Past Medical History Attestation statement: The following information was validated with the patient. Medical History IV drug abuse Drug abuse Asthma Social History Social History Household Members: None Housing: Homeless Do you presently have visiting nurse or other home services: No Alcohol intake: never Comment: resting quietly in bed, eyes closed Cigarette Packs Per Day: 0.5 Cigarettes Per Day: 10.0 Years Smoked: 15 Second Hand Smoke Exposure: Yes Substance Use Type: Heroin, Opiates and Prescription Drugs service: No Current occupational status: unemployed Physical Exam ED Vital Signs: Vital Signs - 24 hr 10/15/23 16:09 Temperature 98.5 F Pulse Rate 92 Respiratory Rate 16 Blood Pressure 103/53 L Pulse Oximetry 97 Oxygen Delivery Method Room Air BMI result Body Mass Index 23.4 Appearance: Alert. Oriented X3. No acute distress. Eyes: Pupils equal, round and reactive to light. ENT: Pharynx normal. Positive redness to bilateral maxillary area. There is no gross fluctuance noted. Examined patient's dentition multiple tooth missing. There has no abscess palpable. Posterior pharynx was normal. Neck: Normal inspection. Neck supple. No lymph nodes noted. No crepitus CVS: Normal heart rate and rhythm. Pulses normal. Normal S1 and S2. No murmurs appreciated. Respiratory: No respiratory distress. Breath sounds normal. No Wheezing. No rales Abdomen: Soft and nontender. No rigidity. No distention. good BS x4 Skin: Multiple track shelton noted in the bilateral upper extremity. No gross fluctuance noted. Minimal redness noted at the site of track shelton Extremities: No lower extremity edema. Neurovascular intact to all extremities. No Lacerations. Moving all extremities well Neuro: Oriented X 3. No motor deficit. No sensory deficit. Moving all extermities. No slurred speech Medical Decision Making Medical Decision Making [facility] Narrative: Patient is 33 years old has positive facial swelling and multiple track shelton noted in bilateral upper extremity. Patient admits to using heroin intravenously and also used cocaine. Last use heroin prior to arrival. Patient sugar was low given glucose on the ambulance. Offer labs. Patient does not want any further treatment. Very upset walking out of the emergency department. Explained to patient we can do additional testing for her. Patient refused. She is awake alert he is ambulatory. Explained to patient that we could miss an infection he states understanding. Will empirically start patient on doxycycline. Patient explained the need to stop using recreational drugs. Left against medical advice. Differential Diagnosis Differential Diagnoses: The differential diagnosis associated with the presentation includes Sepsis, cellulitis, abscess Admission/Observation Consideration of admission/observation: Escalation of care including admission/observation considered Lab Data [facility] Lab Attestation statement: I reviewed the patient's lab results. Labs: Lab Results 10/15/23 Range/Units 16:12 POC Glucose 101 (60-115) mg/dL External Record Review External record reviewed: Outpatient record Prescription Management I considered prescription management with: Antibiotic Antibiotics given Social Determinants Patient?s care significantly limited by Social Determinants of Health including: Alcoholism and drug addiction in family Discharge Plan Discharge Clinical Impression: Cellulitis Patient Disposition: Home, Self-Care Instructions: Cellulitis (ED) Prescriptions: New doxycycline hyclate 100 mg capsule 100 mg PO BID 7 Days Qty: 14 0RF No Action doxycycline hyclate 100 mg capsule 100 mg PO BID Qty: 28 0RF Referrals: [facility] [Provider Group] - 10/17/23 Stand Alone Forms: Against Medical Advice
--- NOTE | 2023-10-15 17:18 | PC.NURSE ---
pt leaving AMA for not being treated right and stigmatized after being asked to change into hospital attire and belongings to be searched/locked up after pt handed Zheng RN 2 needles. pt with KEISHA, coming in for cellulitis. sts we were not treating the actual problem she came in for. pt aware of risks of leaving AMA.
== END 2023-10-15 17:21 | disposition home or self-care (01) ==
LOC: HO.ED 17:15
PROVIDERS: Emergency Provider Emergency Medicine Emergency Medical Services
DX: L03.113 Cellulitis of right upper limb (principal); F11.10 Opioid abuse, uncomplicated; F14.10 Cocaine abuse, uncomplicated
CPT/HCPCS: 82947; 99282

== ENCOUNTER 2023-11-05 23:02 | Emergency (ER) | payer OTHER, SELFPAY ==
[2023-11-05 23:08] VITALS: BP 147/78; PULSE 120; RESP 16; TEMP 37.1; O2SAT 97; O2SAT 98; BMI 28.0
[2023-11-05 23:15] VITALS: BP 89/72; PULSE 100; RESP 17; TEMP 37.2; O2SAT 97
[2023-11-05 23:55] VITALS: BP 106/56
[2023-11-05 23:59] VITALS: BP 116/54
--- NOTE | 2023-11-05 23:59 | ED.GENADULT ---
HPI - General Adult General Chief complaint: Dental/Oral Stated complaint: abscesses Time Seen by Provider: 11/05/23 23:11 Source: patient Mode of arrival: EMS Limitations: no limitations History of Present Illness HPI narrative: Patient is a 33 old female who presents to the emergency department via EMS for evaluation of dental/facial pain swelling and redness. She reports recently completing a course of antibiotics for reported abscesses in her mouth with poor dentition. She states that the infection is spreading to her lips or tongue and cheeks and is resulting in redness and pain. When asked whether she has followed up with a dentist she states ?they were trying to get me in to dentist at a program but they could not get the infection to clear first?. She appears very anxious and fidgeting during time of my examination and having quite a difficult time sitting still. Upon review of her records does have a history of polysubstance abuse, when asked whether she has used any recreational drugs she states ?do not ask me about drugs?. She has been experiencing tactile fevers. Denies neck pain, chest pain, shortness of breath. Related Data Previous Rx's Medication Instructions Recorded doxycycline hyclate 100 mg capsule 100 mg PO BID #28 caps 07/21/20 doxycycline hyclate 100 mg capsule 100 mg PO BID cough 7 days #14 caps 10/15/23 Allergies Allergy/AdvReac Type Severity Reaction Status Date / Time Cephalosporins Allergy Severe ANAPHYLAXIS Verified 07/19/20 22:10 [CEPHALOSPORINS] cefaclor [From CECLOR] Allergy Mild AIRWAY Verified 07/19/20 22:10 CONSTRICTION bee stings Allergy Unknown Anaphylaxis Uncoded 07/19/20 22:10 Review of Systems Review of Systems: Yes all other systems are reviewed and are negative PMFSH Past Medical History Attestation statement: The following information was validated with the patient. Source: old records reviewed Medical History IV drug abuse Drug abuse Asthma Social History Social History Household Members: None Housing: Homeless Do you presently have visiting nurse or other home services: No Alcohol intake: never Comment: resting quietly in bed, eyes closed Cigarette Packs Per Day: 0.5 Cigarettes Per Day: 10.0 Years Smoked: 15 Second Hand Smoke Exposure: Yes Substance Use Type: Heroin, Opiates and Prescription Drugs Advance Directives: No Advance Directives Information Provided: Yes service: No Current occupational status: unemployed Physical Exam ED Vital Signs: Vital Signs - 24 hr 11/05/23 23:08 11/05/23 23:15 11/05/23 23:55 Temperature 98.8 F 98.9 F Pulse Rate 100 Respiratory Rate 16 17 Blood Pressure 89/72 L 106/56 L Pulse Oximetry 97 97 Oxygen Delivery Method Room Air Room Air 11/05/23 23:59 Temperature Pulse Rate Respiratory Rate Blood Pressure 116/54 L Pulse Oximetry Oxygen Delivery Method BMI result Body Mass Index 28.0 Appearance: Alert. Oriented X3. No acute distress. Head: Normal external exam. Normocephalic. Atraumatic. Eyes: PERRLA. EOMI. Conjunctiva and sclera normal. Eyelids normal. ENT: EAC normal. TM's Normal. Pharynx normal. Uvula midline. Moist mucous membranes.? ?No trismus noted.? No drooling noted.? No muffled voice noted. Erythema localized swelling to the nose and circumoral region Dentition:? Patient with poor dentition throughout with multiple old fractured teeth with multiple dental caries.? Gingival erythema without obvious abscess, No fluctuance.? No salivary duct obstruction noted. Neck: Normal inspection. Neck supple. FROM. No adenopathy. Thyroid Normal. No meningeal signs. No neck mass noted.? Trachea midline. CVS: Normal heart rate and rhythm. Heart sound normal. No murmurs noted. Pulses normal throughout. Respiratory: No respiratory distress. LSCTA. ?No accessory muscle usage noted or decreased air movement noted. Back:? Full range of motion noted. Skin: Skin warm and dry.? Normal skin color.? Extremities: Extremities exhibit normal range of motion.? Extremities nontender. Neuro: Oriented X 3.? No motor deficit.? No sensory deficit.? Course Reevaluation(s) Reevaluation #1: I was advised by nursing staff at this time the patient had eloped from the department. Time: 00:30 Medical Decision Making Medical Decision Making MDM Narrative: Patient is a 33 old female who presents emergency department for evaluation of dental/oral pain and swelling with expressed concern for infection and abscess despite the use of recent antibiotics as per HPI. Physical exam concerning for cellulitis on her face, no discernible dental abscess upon inspection. Given her history of IV drug use, and concern for infection/possible bacteremia plan to obtain serum labs in addition to lactic acid blood cultures Differential Diagnosis Differential Diagnoses: The differential diagnosis associated with the presentation includes (As noted above) Admission/Observation Consideration of admission/observation: Escalation of care including admission/observation considered (Considered admission patient however eloped from the department) Lab Data MDM Lab Attestation statement: I reviewed the patient's lab results. 11/06/23 00:15 11/06/23 00:15 Labs: Lab Results 11/06/23 11/06/23 Range/Units 00:15 00:16 WBC 5.6 (4.8-10.8) X10*3/uL RBC 4.17 L (4.20-5.50) X10*6/uL Hgb 11.9 L (12.0-16.0) g/dl Hct 36.1 L (37.0-47.0) % MCV 86.6 (80.0-98.0) fL MCH 28.5 (27.0-33.0) pg MCHC 33.0 (31.0-35.0) g/dl RDW 14.0 (11.0-16.0) % Plt Count 260 (160-400) X10*3/uL MPV 9.6 (9.4-12.3) fL Immature Gran % (Auto) 0.2 (0.0-0.4) % Neut % (Auto) 53.0 (45-73) % Lymph % (Auto) 34.7 (20-40) % [place] % (Auto) 10.7 (2-11) % Eos % (Auto) 0.7 (0-4) % Baso % (Auto) 0.7 (0-2) % Lymph # (Auto) 2.0 (1.2-4.9) X10*3/uL [place] # (Auto) 0.6 (0.1-1.2) X10*3/uL Eos # (Auto) 0.0 (0.0-0.4) X10*3/uL Baso # (Auto) 0.0 (0.0-0.2) X10*3/uL Abs Immat Gran (auto) 0.01 (0.00-0.03) X10*3/uL Absolute Neuts (auto) 3.0 (2.0-8.3) x10*3/uL Absolute Nucleated RBC 0.000 (0.0-0.012) X10*3/uL Nucleated RBC % (auto) 0.0 (0.0-0.2) /100WBC Sodium 143 (135-145) mmol/L Potassium 3.5 (3.3-5.1) mmol/L Chloride 106 (96-108) mmol/L Carbon Dioxide 28 (22-29) mmol/L Anion Gap 13 (12-20) BUN 19 H (9-16) mg/dL Creatinine 0.70 (0.5-1.4) mg/dL Estim Creat Clear Calc 115.7 Estimated GFR > 60 Random Glucose 84 (60-115) mg/dL Lactic Acid 0.7 (0.5-2.0) mmol/L Calcium 9.1 D (8.4-10.2) mg/dL Total Bilirubin 0.5 (0.0-1.0) mg/dL AST 53 H (5-31) U/L ALT 80 H (0-31) U/L Alkaline Phosphatase 80 (39-117) U/L Total Protein 7.6 (6.5-8.0) g/dL Albumin 3.9 (3.5-5.0) g/dL Independent Historian Clinical information obtained from an independent historian. History obtained from or confirmed by: EMS Discharge Plan Discharge Clinical Impression: Cellulitis of face Patient Disposition: Elopement Prescriptions: No Action doxycycline hyclate 100 mg capsule 100 mg PO BID Qty: 28 0RF doxycycline hyclate 100 mg capsule 100 mg PO BID 7 Days Qty: 14 0RF Discharge Date/Time: 11/06/23 01:38
--- NOTE | 2023-11-06 00:05 | PC.NURSE ---
pt refuses IV at this time however will allow tech to draw blood
[2023-11-06 00:21] LABS: MANUAL DIFF FLAG NO
[2023-11-06 00:22] LABS: Basophils Percent Auto 0.7 % (0-2); Eosinophils Percent Auto 0.7 % (0-4); Hematocrit 36.1 % (37.0-47.0); Hemoglobin 11.9 g/dl (12.0-16.0); Imm Gran Abs Auto 0.01 X10*3/uL (0.00-0.03); Imm Gran Pct Auto 0.2 % (0.0-0.4); Lymphocytes Percent Auto 34.7 % (20-40); Mean Corpuscular Hemoglobin 28.5 pg (27.0-33.0); Mean Corpuscular Volume 86.6 fL (80.0-98.0); Mean Platelet Volume 9.6 fL (9.4-12.3); Monocytes Absolute Auto 0.6 X10*3/uL (0.1-1.2); Monocytes Percent Auto 10.7 % (2-11); Platelet Count 260 X10*3/uL (160-400); Red Blood Count 4.17 X10*6/uL (4.20-5.50); White Blood Count 5.6 X10*3/uL (4.8-10.8)
[2023-11-06 00:31] LABS: Lactic Acid 0.7 mmol/L (0.5-2.0)
[2023-11-06 00:35] LABS: Alanine Aminotransferase 80 U/L (0-31); Albumin Level 3.9 g/dL (3.5-5.0); Alkaline Phosphatase 80 U/L (39-117); Anion Gap 13 (12-20); Aspartate Amino Transferase 53 U/L (5-31); Bilirubin Total 0.5 mg/dL (0.0-1.0); Blood Urea Nitrogen 19 mg/dL (9-16); Calcium 9.1 mg/dL (8.4-10.2); Carbon Dioxide 28 mmol/L (22-29); Chloride 106 mmol/L (96-108); Creatinine Clr Calc Pharmacy 115.7; Estimated Glomerular Filt Rate > 60; Glucose Random 84 mg/dL (60-115); Potassium 3.5 mmol/L (3.3-5.1); Sodium 143 mmol/L (135-145); Total Protein 7.6 g/dL (6.5-8.0)
--- NOTE | 2023-11-06 01:18 | PC.NURSE ---
pt seen leaving ED
--- NOTE | 2023-11-06 01:18 | PC.NURSE ---
pt seenleaving ED by staff , provider made aware
== END 2023-11-06 01:38 | disposition left against medical advice (07) ==
PROVIDERS: Nurse Practitioner Family; Emergency Provider Emergency Medicine Emergency Medical Services
DX: L03.211 Cellulitis of face (principal)
CPT/HCPCS: 36415; 80053; 83605; 85025; 87040; 99283; 99284

== ENCOUNTER 2024-10-06 10:01 | Emergency (ER) | payer OTHER, SELFPAY ==
--- NOTE | 2024-10-06 10:08 | ED_ITS ---
HPI - General Adult General Chief complaint: Psychiatric Symptoms Stated complaint: CRISIS-IN CUSTODY Time Seen by Provider: 10/06/24 10:07 History of Present Illness ED Provider: Kenny MORALES narrative: The patient is a 34-year-old female who was brought to the hospital by ambulance with police according the medics. Apparently there has been several calls to the police because of the patient's behavior. The police have responded several times. The patient has an obvious area of significant soft tissue swelling in the region of the right eyebrow. The police were concerned about the patient has medical status and ultimately brought her to the hospital against her will in the status of protective custody. A section 12 was not filled out. The patient says that she has been seen for the swelling over her eye before and was prescribed antibiotics but she can not tell me what antibiotic. She says that she does not want to be here and does not want to receive any evaluation or treatment here. She says she would rather go to a different hospital. She denies suicidality or homicidality. She denies alcohol or drug use. Related Data Previous Rx's ?Medication ?Instructions ?Recorded doxycycline hyclate 100 mg capsule 100 mg PO BID #28 caps 07/21/20 doxycycline hyclate 100 mg capsule 100 mg PO BID cough 7 days #14 caps 10/15/23 Allergies Allergy/AdvReac Type Severity Reaction Status Date / Time Cephalosporins Allergy Severe ANAPHYLAXIS Verified 10/06/24 10:38 [CEPHALOSPORINS] cefaclor [From CECLOR] Allergy Mild AIRWAY Verified 10/06/24 10:38 CONSTRICTION bee stings Allergy Unknown Anaphylaxis Uncoded 07/19/20 22:10 Review of Systems Review of Systems: Yes all other systems are reviewed and are negative PMFSH Past Medical History Medical History IV drug abuse Drug abuse Asthma Social History Social History Household Members: None Housing: Homeless Do you presently have visiting nurse or other home services: No Alcohol intake: never Comment: resting quietly in bed, eyes closed Cigarette Packs Per Day: 0.5 Cigarettes Per Day: 10.0 Years Smoked: 15 Second Hand Smoke Exposure: Yes Substance Use Type: Heroin, Opiates and Prescription Drugs Advance Directives: No Advance Directives Information Provided: Yes service: No Current occupational status: unemployed Physical Exam ED Vital Signs: Vital Signs - 24 hr 10/06/24 10:23 10/06/24 10:41 Temperature 0 F L 0 F L Pulse Rate 0 L 0 L Respiratory Rate 16 0 L Blood Pressure 00/00 L 00/00 L Pulse Oximetry 0 L 0 L BMI result Body Mass Index 22.9 Const Other: The patient is a 34-year-old female who arrived on an ambulance stretcher. She had police handcuffs on. She has a disheveled appearance. She had an agitated manner. She had some obvious soft tissue swelling to the skin above the right eye. She was extremely talkative but she was not incoherent. She does not seem in any respiratory distress. HENMT Other: The patient has a lot of soft tissue swelling in the region of the right eyebrow and right upper eyelid. The skin overlying the swelling is slightly erythematous but not deeply so. The swelling does not seem fluctuant on exam. The patient also has some excoriations to the skin behind the right ear. Eyes Other: There is a lot of swelling to the right upper eyelid that extends into the region of the right eyebrow. The eye itself does not seem obviously abnormal. Pupils are round equal. The conjunctivae are clear. Extraocular movements are intact. No lower eyelid swelling. Neck Other: Moving her neck easily. No JVD. Resp Effort & Inspection: normal respiratory effort Auscultation: clear to auscultation bilaterally Cardio Rate: regular rate Rhythm: regular rhythm Heart sounds: S1 normal heart sound present and S2 normal heart sound present Skin Other: The patient has a lot of soft tissue swelling to the right upper eyelid and the right eyebrow area. This does not seem fluctuant. There is some pale erythema to the skin overlying the swelling. There is also a lot of excoriation to the skin behind the right ear. Neuro Other: The patient was awake and alert. She was oriented. She was hyperverbal and very argumentative. She seemed agitated but not disoriented. Cranial nerves are intact. She moves her extremities normally. She has a steady gait. I do not think she is exhibiting any thought disorder. Extrem Other: No peripheral edema Medical Decision Making Medical Decision Making MDM Narrative: The patient is a 34-year-old woman who was brought to the hospital in an unusual status. Police officers indicated that they were invoking protective custody to get her to the emergency room for medical evaluation. She was not placed under a section 12. The patient is very argumentative and somewhat agitated but she does not seem frankly confused or disoriented. She says that she has already been prescribed antibiotics for her right upper eyelid. She would not tell me where she was seen before or whether things are getting worse or better. She only tells me that she is very unhappy that she was brought here and that she has been treated like a drug addict and does not wish to receive care here. She would prefer to go to another hospital. Was my impression that the patient is fairly coherent in her thinking although she is agitated. She is not suicidal or homicidal. I do not think she is in the throes of a manic episode. Ultimately I felt that she had capacity to make her own medical decisions and she was therefore discharged as that was her request. She has been offered additional evaluation here but she insisted that she be discharged. Discharge Plan Discharge Clinical Impression: Swelling of right upper eyelid Patient Disposition: Home, Self-Care Additional Instructions: Please return to the emergency room if you want us to investigate your eye any further. Alternatively you may go to a different hospital if you wish. Return to the emergency room if significantly worse at any time. Prescriptions: No Action doxycycline hyclate 100 mg capsule 100 mg PO BID Qty: 28 0RF doxycycline hyclate 100 mg capsule 100 mg PO BID 7 Days Qty: 14 0RF Interventions: Upson-Suicide Risk Severity Scale Last Done: 10/06/24 10:41 ED Discharge Assessment Last Done: 10/06/24 10:41 Discharge Date/Time: 10/06/24 10:43 Print Language: Upper Sorbian
[2024-10-06 10:23] VITALS: BP 00/00; PULSE 0; RESP 16; TEMP -17.7; TEMP 0; O2SAT 0; BMI 22.9
[2024-10-06 10:41] VITALS: BP 00/00; PULSE 0; RESP 0; TEMP -17.7; TEMP 0; O2SAT 0
== END 2024-10-06 10:43 | disposition home or self-care (01) ==
PROVIDERS: Emergency Provider Emergency Medicine
DX: H00.011 Hordeolum externum right upper eyelid (principal); Z79.899 Other long term (current) drug therapy
CPT/HCPCS: 99283

== ENCOUNTER 2024-10-29 05:48 | Emergency (ER) | payer OTHER, SELFPAY ==
[2024-10-29 05:51] VITALS: BP 121/78; BP 134/78; PULSE 109; PULSE 80; RESP 20; TEMP 37; O2SAT 100; O2SAT 96; BMI 19.3
[2024-10-29 06:03] VITALS: BP 134/78; PULSE 103; RESP 20; TEMP 37; O2SAT 96
--- NOTE | 2024-10-29 06:26 | PC.NURSE ---
patient resting quietly at this time. provider stated to no longer administer meds as ordered.
--- NOTE | 2024-10-29 08:14 | ED.OVERDOSE ---
HPI - Overdose General Chief Complaint: Overdose Stated Complaint: Overdose Time Seen by Provider: 10/29/24 05:55 Source: patient Mode of arrival: EMS Limitations: altered mental status History of Present Illness ED Provider: Dr. Jeremi Thorne HPI Narrative: 34-year-old female with a history of opiate use disorder, overdose in the past who was brought to emergency department by ambulance. According to EMS the patient was found on the street unresponsive by bystanders. They administered 2 doses of intranasal Narcan and the patient woke up and was extremely agitated. Patient states she was shooting and smoking heroin and cocaine earlier in the day and was very tired and just fell asleep on the street. She does not believe that she overdosed. She denied being ill in any way prior to being found on the street. She states she was overdosed on narcotics in the past. She states she does want to talk to our recovery counselors. Related Data Previous Rx's ?Medication ?Instructions ?Recorded doxycycline hyclate 100 mg capsule 100 mg PO BID #28 caps 07/21/20 doxycycline hyclate 100 mg capsule 100 mg PO BID cough 7 days #14 caps 10/15/23 Allergies Allergy/AdvReac Type Severity Reaction Status Date / Time Cephalosporins Allergy Severe ANAPHYLAXIS Verified 10/29/24 05:57 [CEPHALOSPORINS] cefaclor [From CECLOR] Allergy Mild AIRWAY Verified 10/29/24 05:57 CONSTRICTION bee stings Allergy Unknown Anaphylaxis Uncoded 10/29/24 05:57 Review of Systems Review of Systems: Yes all other systems are reviewed and are negative [facility] Past Medical History Medical History IV drug abuse Drug abuse Asthma Social History Social History Household Members: None Housing: Homeless Do you presently have visiting nurse or other home services: No Alcohol intake: never Comment: resting quietly in bed, eyes closed Cigarette Packs Per Day: 0.5 Cigarettes Per Day: 10.0 Years Smoked: 15 Smoked in Last 30 Days: Yes Second Hand Smoke Exposure: Yes Use of substances other than those prescribed or required for medical reasons: Yes Substance Use Type: Crack/Cocaine and Heroin Substance Use Frequency: Chronic Longstanding Advance Directives: No Do you have a plan to hurt others: No Plan Patient : No service: No Current occupational status: unemployed Physical Exam Vital Signs: Vital Signs: Last Vital Signs Temp 0 F L 10/29/24 15:01 Pulse 79 10/29/24 15:01 Resp 16 10/29/24 15:01 BP 104/59 L 10/29/24 15:01 Pulse Ox 97 10/29/24 15:01 O2 Del Method Room Air 10/29/24 15:01 BMI result Body Mass Index 19.3 Vital signs revealed an elevated pulse of 103 otherwise unremarkable Exam: General: initially the patient was agitated, vomiting but eventually calm down without medications. After sleeping for a period of time she was able to give a history without any difficulty. Head: Normocephalic, atraumatic, patient does have redness on her face but she states that this is normal for her in his often a reaction to Narcan EENT: PERRL, Lids normal, sclera normal, conjunctiva normal, nose normal , ears normal, throat without erythema or exudates Neck: Supple, no adenopathy Lung: breath sounds symmetric, no wheezing, rales or rhonchi Chest: symmetric movement, nontender Heart: regular rate and rhythm, normal S1, S2 no murmurs or rubs Abdomen: soft, non-tender, nondistended, normal bowel sounds Back: no vertebral tenderness, no CVAT Extremities: no deformities, moves all extremities symmetrically Neuro: Awake, alert, oriented, normal speech, cranial nerves intact, moves all extremities symmetrically Psych: Pleasant, cooperative Course Reevaluation(s) Reevaluation #1: SIGNED OUT TO ME BY dR THORNE WAITING RECOVERING TEAM Time: 11:40 Reevaluation #2: Pt will go to detox [facility] found Time: 14:04 Medications Administered Discontinued Medications Generic Name Dose Route Start Last Admin Trade Name Ethanq PRN Reason Stop Dose Admin Diphenhydramine HCl 50 mg 10/29/24 05:55 10/29/24 06:25 Diphenhydramine Hcl 50 Mg/Ml Vial IVPUSH 10/29/24 05:56 Not Given ONCE STA Haloperidol Lactate 2.5 mg 10/29/24 05:57 10/29/24 06:26 Haloperidol Lactate 5 Mg/Ml Vial IVPUSH 10/29/24 05:58 Not Given ONCE ONE Lorazepam 1 mg 10/29/24 05:55 10/29/24 06:25 Lorazepam 2 Mg/Ml Vial IVPUSH 10/29/24 05:56 Not Given STAT STA Metoclopramide HCl 10 mg 10/29/24 05:55 10/29/24 06:25 Metoclopramide Hcl 10 Mg/2 Ml Vial IVPUSH 10/29/24 05:56 Not Given ONCE STA Medical Decision Making Medical Decision Making MDM Narrative: 34-year-old female with a history of opiate use disorder, overdose in the past who was brought to emergency department by ambulance. According to EMS the patient was found on the street unresponsive by bystanders. They administered 2 doses of intranasal Narcan and the patient woke up and was extremely agitated. Patient states she was shooting and smoking heroin and cocaine earlier in the day and was very tired and just fell asleep on the street. She does not believe that she overdosed. She denied being ill in any way prior to being found on the street. She states she was overdosed on narcotics in the past. She states she does want to talk to our recovery counselors. vital signs revealed an elevated heart rate otherwise unremarkable. patient was initially agitated but after she was able asleep for a period of time she was able to cooperate in her exam was unremarkable. Differential diagnosis: Includes but is not limited to heroin overdose, fentanyl overdose, polysubstance use disorder Course: 09:24 Start physician observation The patient did not require any medications and was able to calm down and fall asleep. When she woke up she was pleasant and cooperative and was able to speak to our recovery counselor. the patient was interested in getting into a detox program and our recovery counselor will look for a possible detox bed. therefore I did order CBC, CMP, urine tox screen, ethanol level, COVID-19, influenza and RSV testing. At the end of my shift, patient's care was turned over to my colleague, Dr. Morrell. Admission/Observation Consideration of admission/observation: Escalation of care including admission/observation considered ( No) Lab Data 10/29/24 10:38 10/29/24 10:38 Labs: Lab Results 10/29/24 Range/Units 10:38 WBC 7.4 (4.8-10.8) X10*3/uL RBC 4.37 (4.20-5.50) X10*6/uL Hgb 12.2 (12.0-16.0) g/dl Hct 38.5 (37.0-47.0) % MCV 88.1 (80.0-98.0) fL MCH 27.9 (27.0-33.0) pg MCHC 31.7 (31.0-35.0) g/dl RDW 13.7 (11.0-16.0) % Plt Count 207 (160-400) X10*3/uL MPV 9.5 (9.4-12.3) fL Immature Gran % (Auto) 0.4 (0.0-0.4) % Neut % (Auto) 65.4 (45-73) % Lymph % (Auto) 24.6 (20-40) % Lee % (Auto) 8.2 (2-11) % Eos % (Auto) 0.9 (0-4) % Baso % (Auto) 0.5 (0-2) % Lymph # (Auto) 1.8 (1.2-4.9) X10*3/uL Lee # (Auto) 0.6 (0.1-1.2) X10*3/uL Eos # (Auto) 0.1 (0.0-0.4) X10*3/uL Baso # (Auto) 0.0 (0.0-0.2) X10*3/uL Abs Immat Gran (auto) 0.03 (0.00-0.03) X10*3/uL Absolute Neuts (auto) 4.8 (2.0-8.3) x10*3/uL Absolute Nucleated RBC 0.000 (0.0-0.012) X10*3/uL Nucleated RBC % (auto) 0.0 (0.0-0.2) /100WBC Sodium 137 (135-145) mmol/L Potassium 3.8 (3.3-5.1) mmol/L Chloride 108 (96-108) mmol/L Carbon Dioxide 20 L (22-29) mmol/L Anion Gap 13 (12-20) BUN 18 H (9-16) mg/dL Creatinine 0.60 (0.5-1.4) mg/dL Estim Creat Clear Calc 119.0 Estimated GFR > 60 Random Glucose 126 H (60-115) mg/dL Calcium 8.6 (8.4-10.2) mg/dL Total Bilirubin 0.2 (0.0-1.0) mg/dL AST 58 H (5-31) U/L ALT 82 H (0-31) U/L Alkaline Phosphatase 60 (39-117) U/L Total Protein 7.1 (6.5-8.0) g/dL Albumin 3.2 L (3.5-5.0) g/dL Beta HCG, Quant < 2 mIU/mL Ethyl Alcohol < 10 mg/dL Influenza Type A (PCR) POSITIVE A (Negative) Influenza Type B (PCR) NEGATIVE (Negative) RSV RNA Qual (PCR) NEGATIVE (Negative) SARS-CoV-2 RNA (RT-PCR) NEGATIVE (Negative) Chronic Conditions Patient?s care impacted by: Other ( opiate use disorder) Discharge Plan Discharge Clinical Impression: Opioid use disorder, Opiate overdose Patient Disposition: Home, Self-Care Instructions: Narcotic Use Disorder (ED) Additional Instructions: You were seen by our recovery counselor, please follow their instructions. Your are being discharged home with intranasal Narcan. If you are going to continue to use heroin, you should make sure that there is a sober person with you that is not using drugs and that this person can administer intranasal Narcan in the event that you stop breathing. Follow-up with your doctor in 2 days. Please return to the emergency department if your symptoms get worse or if you develop any symptoms that are concerning to you. Overdose You were seen in our Emergency Department for an overdose today. You received narcan in order to reverse the effects of overdose. Narcan only lasts about 45 min to 1 hour in the system. You may have been given narcan to take home with you today, please keep it near you if you are going to use again, so others can use it if needed.? The number one risk for fatal overdose is using alone? [facility] is a 26/03 hotline where you can be on the phone with someone while you use, and they can call for help if they suspect an overdose: [phone] Things to look out for when you leave include severe vomiting or diarrhea, headaches, muscle cramps, fever, coughing, chest pain, or if you feel so short of breath you cannot walk to the bathroom. Please seek care and return any time for worsening symptoms.? You may have been provided with safer injection?items, please take time to take care of YOU and your health. Use new supplies whenever possible to lessen the chances of infections and other illnesses.? If you need more supplies, please go [facility],? [address], [place] you can call or text to coordinate delivery of safer supplies. If you decide you want to stop or cut down on how much you?re using, please call the numbers on the list provided to you or you can come to our outpatient Addiction Treatment office [facility] (M-F 9am-5p) [address] [place] [address], [address] [place], [place]. [phone] Prescriptions: No Action doxycycline hyclate 100 mg capsule 100 mg PO BID Qty: 28 0RF doxycycline hyclate 100 mg capsule 100 mg PO BID 7 Days Qty: 14 0RF Interventions: ED Discharge Assessment Last Done: 10/29/24 15:01 Discharge Date/Time: 10/29/24 15:07 Print Language: Gabonese
--- NOTE | 2024-10-29 09:54 | MHC.RECOVRN ---
Spoke with Stephani Ryder at [facility], likely female bed open today. Referral faxed.
[2024-10-29 10:30] VITALS: BP 104/59; PULSE 79; RESP 16; O2SAT 97
[2024-10-29 10:43] LABS: MANUAL DIFF FLAG NO
[2024-10-29 10:46] LABS: Basophils Percent Auto 0.5 % (0-2); Eosinophils Absolute Auto 0.1 X10*3/uL (0.0-0.4); Eosinophils Percent Auto 0.9 % (0-4); Hematocrit 38.5 % (37.0-47.0); Hemoglobin 12.2 g/dl (12.0-16.0); Imm Gran Abs Auto 0.03 X10*3/uL (0.00-0.03); Imm Gran Pct Auto 0.4 % (0.0-0.4); Lymphocytes Absolute Auto 1.8 X10*3/uL (1.2-4.9); Lymphocytes Percent Auto 24.6 % (20-40); Mean Corpuscular HGB Conc 31.7 g/dl (31.0-35.0); Mean Corpuscular Hemoglobin 27.9 pg (27.0-33.0); Mean Corpuscular Volume 88.1 fL (80.0-98.0); Mean Platelet Volume 9.5 fL (9.4-12.3); Monocytes Absolute Auto 0.6 X10*3/uL (0.1-1.2); Monocytes Percent Auto 8.2 % (2-11); Neutrophils Absolute Auto 4.8 x10*3/uL (2.0-8.3); Neutrophils Percent Auto 65.4 % (45-73); Platelet Count 207 X10*3/uL (160-400); Red Blood Count 4.37 X10*6/uL (4.20-5.50); Red Cell Distribution Width 13.7 % (11.0-16.0); White Blood Count 7.4 X10*3/uL (4.8-10.8)
[2024-10-29 11:10] LABS: Alanine Aminotransferase 82 U/L (0-31); Albumin Level 3.2 g/dL (3.5-5.0); Alkaline Phosphatase 60 U/L (39-117); Anion Gap 13 (12-20); Aspartate Amino Transferase 58 U/L (5-31); Bilirubin Total 0.2 mg/dL (0.0-1.0); Blood Urea Nitrogen 18 mg/dL (9-16); Calcium 8.6 mg/dL (8.4-10.2); Carbon Dioxide 20 mmol/L (22-29); Chloride 108 mmol/L (96-108); Estimated Glomerular Filt Rate > 60; Ethanol < 10 mg/dL; Glucose Random 126 mg/dL (60-115); HCG Quantitative < 2 mIU/mL; Potassium 3.8 mmol/L (3.3-5.1); Sodium 137 mmol/L (135-145); Total Protein 7.1 g/dL (6.5-8.0)
[2024-10-29 11:21] LABS: Influenza A PCR POSITIVE (Negative); Influenza B PCR NEGATIVE (Negative); Resp Syncy Virus RNA Qual PCR NEGATIVE (Negative); SARS COV2 PCR INHOUSE NEGATIVE (Negative)
--- NOTE | 2024-10-29 14:09 | MHC.RECOVRN ---
Pt accepted to [facility]. Will be transported via [facility].
[2024-10-29 15:01] VITALS: BP 104/59; PULSE 79; RESP 16; TEMP -17.7; TEMP 0; O2SAT 97
--- NOTE | 2024-10-29 15:06 | PC.NURSE ---
sent to detox in [place].
== END 2024-10-29 15:07 | disposition home or self-care (01) ==
PROVIDERS: Emergency Medicine Emergency Medical Services; Emergency Provider Emergency Medicine
DX: T40.1X1A Poisoning by heroin, accidental (unintentional), initial encounter (principal); R40.4 Transient alteration of awareness; Y92.410 Unspecified street and highway as the place of occurrence of the external cause; Z71.51 Drug abuse counseling and surveillance of drug abuser; Z03.818 Encounter for observation for suspected exposure to other biological agents ruled out; Z51.81 Encounter for therapeutic drug level monitoring; Z79.899 Other long term (current) drug therapy
CPT/HCPCS: 0241U; 36415; 80053; 80307; 84702; 85025; 96374; 96375; 99284; S9485

== ENCOUNTER 2025-02-07 02:05 | Emergency (ER) | payer OTHER, SELFPAY ==
[2025-02-07 02:09] VITALS: PULSE 127; O2SAT 99
[2025-02-07 02:18] VITALS: BP 125/53; PULSE 97; RESP 22; TEMP 38; O2SAT 97; BMI 23.3
[2025-02-07 03:05] VITALS: O2SAT 95
--- NOTE | 2025-02-07 03:34 | ED_ITS ---
HPI - Overdose General Chief Complaint: Overdose Stated Complaint: OVERDOSE Time Seen by Provider: 02/07/25 02:18 Source: patient Mode of arrival: ambulatory Limitations: no limitations History of Present Illness ED Provider: HPI Narrative: Patient's history of substance abuse homeless use heroin earlier was found unresponsive but breathing of her own patient has received 12 mg of Narcan by PD no signs of head injury no vomiting Related Data Previous Rx's ?Medication ?Instructions ?Recorded doxycycline hyclate 100 mg capsule 100 mg PO BID #28 caps 07/21/20 doxycycline hyclate 100 mg capsule 100 mg PO BID cough 7 days #14 caps 10/15/23 Allergies Allergy/AdvReac Type Severity Reaction Status Date / Time Cephalosporins Allergy Severe ANAPHYLAXIS Verified 02/07/25 02:19 [CEPHALOSPORINS] cefaclor [From CECLOR] Allergy Mild AIRWAY Verified 02/07/25 02:19 CONSTRICTION bee stings Allergy Unknown Anaphylaxis Uncoded 02/07/25 02:19 Review of Systems Review of Systems: Yes all other systems are reviewed and are negative [facility] Past Medical History Medical History IV drug abuse Drug abuse Asthma Social History Social History Household Members: None Housing: Homeless Do you presently have visiting nurse or other home services: No Alcohol intake: never Comment: resting quietly in bed, eyes closed Cigarette Packs Per Day: 0.5 Cigarettes Per Day: 10.0 Years Smoked: 15 Second Hand Smoke Exposure: Yes Substance Use Type: Crack/Cocaine and Heroin Advance Directives: No Advance Directives Information Provided: No service: No Current occupational status: unemployed Physical Exam Vital Signs: Vital Signs: Last Vital Signs Temp 97.9 F 02/07/25 06:43 Pulse 79 02/07/25 06:43 Resp 12 02/07/25 06:43 BP 110/60 02/07/25 06:43 Pulse Ox 95 02/07/25 06:43 O2 Del Method Room Air 02/07/25 06:43 BMI result Body Mass Index 23.3 Appearance: Alert. Sleeping No acute distress. Eyes: PERRLA, No Nystagmus ENT: Pharynx normal. Oral Mucosa moist no signs of head injury Neck: Normal inspection. Neck supple. CVS: Normal heart rate and rhythm. Pulses normal. Respiratory: No respiratory distress. Equal air entry bilateral, no wheezing/rales/rhonchi Abdomen: Soft and nontender. Bowel sounds are present, no mass palpable, no CVA tenderness Skin: Skin warm and dry. Normal skin color. Normal skin turgor. Extremities: No lower extremity edema. No calf tenderness Neuro: Sleeping moving all 4 extremities Medications Administered Discontinued Medications Generic Name Dose Route Start Last Admin Trade Name Freq PRN Reason Stop Dose Admin Naloxone HCl 8 mg 02/07/25 06:17 02/07/25 06:29 Naloxone Hcl Nasal Take Home 4 Mg Zarephath NOSTRILALT 02/07/25 06:18 8 mg ONCE ONE Administration Medical Decision Making Medical Decision Making [facility] Narrative: Patient's polysubstance abuse been here before with positive fentanyl and cocaine refused to give urine ambulatory at the time of discharge patient does not want any detox will give her Narcan to take home Discharge Plan Discharge Clinical Impression: Opioid use disorder Patient Disposition: Home, Self-Care Instructions: Opioid Use Disorder (ED) Additional Instructions: Stop using drugs Follow up with detox Prescriptions: No Action doxycycline hyclate 100 mg capsule 100 mg PO BID Qty: 28 0RF doxycycline hyclate 100 mg capsule 100 mg PO BID 7 Days Qty: 14 0RF Interventions: ED Discharge Assessment Last Done: 02/07/25 06:43 Discharge Date/Time: 02/07/25 06:43 Print Language: Turkish
[2025-02-07 04:00] VITALS: BP 102/58; PULSE 94; RESP 16; TEMP 36.9; O2SAT 98
--- NOTE | 2025-02-07 04:56 | PC.NURSE ---
pt resting comfortably with eyes closed, breathing even and unlabored, call friedman w/in reach
[2025-02-07 05:55] VITALS: BP 110/60; PULSE 79; RESP 12; TEMP 36.6; O2SAT 95
[2025-02-07] MEDS: Naloxone HCl Nasal TAKE HOME 4 MG SPRAY 8 MG NOSTRILALT (06:29)
--- NOTE | 2025-02-07 06:29 | PC.NURSE ---
take home narcan given to pt at discharge
[2025-02-07 06:43] VITALS: BP 110/60; PULSE 79; RESP 12; TEMP 36.6; O2SAT 95
== END 2025-02-07 06:43 | disposition home or self-care (01) ==
PROVIDERS: Emergency Provider Internal Medicine
DX: F11.90 Opioid use, unspecified, uncomplicated (principal); R40.4 Transient alteration of awareness; Z59.00 Homelessness unspecified
CPT/HCPCS: 99283

== ENCOUNTER 2025-04-03 15:21 | Emergency (ER) | payer SELFPAY ==
[2025-04-03 15:25] VITALS: BP 166/90; PULSE 124
[2025-04-03 16:12] VITALS: BP 121/48; PULSE 107; RESP 18; TEMP 36.6; O2SAT 96; BMI 20.8
--- NOTE | 2025-04-03 16:40 | ED_ITS ---
HPI - General Adult General Chief complaint: Overdose Stated complaint: SUBSTANCE USE, AMS, FOUND OUTSIDE Time Seen by Provider: 04/03/25 16:13 Source: patient and EMS Mode of arrival: EMS Limitations: no limitations History of Present Illness ED Provider: HPI narrative: 34-year-old female with well documented hx of opiate use disorder, apparently she was found by EMS and brought to the emergency department, no Narcan was given but there were reports that she had altered mentation. At the time of my evaluation patient is clearly under the influences of possibly opiates with a mix of sympathomimetic, but she is speaking full sentences, she is not happy to be in the emergency department, she was requesting to be discharged. She did not express interest in pursuing detox at this facility because she was not happy that she was brought to the hospital in the fact that it told her that she is going to be staying here until either clinical sobriety or someone can pick her up. Related Data Previous Rx's ?Medication ?Instructions ?Recorded doxycycline hyclate 100 mg capsule 100 mg PO BID #28 c aps 07/21/20 doxycycline hyclate 100 mg capsule 100 mg PO BID cough 7 days #14 caps 10/15/23 Allergies Allergy/AdvReac Type Severity Reaction Status Date / Time Cephalosporins Allergy Severe ANAPHYLAXIS Verified 04/03/25 16:15 (CEPHALOSPORINS) cefaclor (From CECLOR) Allergy Mild AIRWAY Verified 04/03/25 16:15 CONSTRICTION bee stings Allergy Unknown Anaphylaxis Uncoded 04/03/25 16:15 Review of Systems Constitutional: Constitutional: Reports as per [facility] Past Medical History Medical History IV drug abuse Drug abuse Asthma Social History Social History Household Members: None Housing: Homeless Do you presently have visiting nurse or other home services: No Alcohol intake: never Comment: resting quietly in bed, eyes closed Cigarette Packs Per Day: 0.5 Cigarettes Per Day: 10.0 Years Smoked: 15 Smoked in Last 30 Days: Yes Second Hand Smoke Exposure: Yes Substance Use Type: Crack/Cocaine Last Used Substance: Hours (ago) Advance Directives: No Advance Directives Information Provided: No Patient : No service: No Current occupational status: unemployed Physical Exam ED Vital Signs: Vital Signs - 24 hr 04/03/25 16:12 Temperature 97.8 F Pulse Rate 107 H Respiratory Rate 18 Blood Pressure 121/48 L Pulse Oximetry 96 Oxygen Delivery Method Room Air BMI result Body Mass Index 20.8 Const Other: * Gen: ?Intermittently lethargic, somewhat agitated * HEENT: Bloodshot eyes * Neck: No blood in the airway * Resp: ?No wheezing rales rhonchi no stridor moving air well * Abd: ?Bowel sounds are present, no tenderness no rebound no rigidity * MSK: Moving upper and lower extremities symmetrically * Skin: Warm, dry, intact, * Neuro: ?Alert and oriented x3, Medical Decision Making Medical Decision Making MDM Narrative: Patient is presenting with a reported overdose by EMS, she has not received Narcan however, I will order home naloxone kit and consult addiction Medicine, at this time I do not feel comfortable on discharging her without escort as she is clearly intoxicated though she is not in respiratory distress, she does express agitation. If she escalates and becomes agitated and safe to self or staff I already discussed with her RN that I plan to sedate the patient pending clinical sobriety. 20:16 patient has not been interested in recovery Services, at this point able to be discharge, she is clinically much more sober Differential Diagnosis Differential Diagnoses: The differential diagnosis associated with the presentation includes (Opiate overdose, polysubstance use disorder, trauma, dehydration, heat stroke) Admission/Observation Consideration of admission/observation: Escalation of care including admission/observation considered Tests considered The following testing was considered but not selected: EKG, CBC, urine tox screen, did not feel those are necessary at this time Discharge Plan Discharge Clinical Impression: Opioid use disorder Patient Disposition: Home, Self-Care Additional Instructions: Overdose You were seen in our Emergency Department for an overdose today. You received narcan in order to reverse the effects of overdose. Narcan only lasts about 45 min to 1 hour in the system. You may have been given narcan to take home with you today, please keep it near you if you are going to use again, so others can use it if needed.? The number one risk for fatal overdose is using alone? [facility] is a / hotline where you can be on the phone with someone while you use, and they can call for help if they suspect an overdose: [phone] Things to look out for when you leave include severe vomiting or diarrhea, headaches, muscle cramps, fever, coughing, chest pain, or if you feel so short of breath you cannot walk to the bathroom. Please seek care and return any time for worsening symptoms.? You may have been provided with safer injection?items, please take time to take care of YOU and your health. Use new supplies whenever possible to lessen the chances of infections and other illnesses.? If you need more supplies, please go [facility],? [address], [place] you can call or text to coordinate delivery of safer supplies. If you decide you want to stop or cut down on how much you?re using, please call the numbers on the list provided to you or you can come to our outpatient Addiction Treatment office [facility] (M-F 9am-5p) [address] [place] [address], [facility] [address] [place], [place]. [phone] Prescriptions: No Action doxycycline hyclate 100 mg capsule 100 mg PO BID Qty: 28 0RF doxycycline hyclate 100 mg capsule 100 mg PO BID 7 Days Qty: 14 0RF Print Language: Solomon Islander
== END 2025-04-03 21:30 | disposition home or self-care (01) ==
PROVIDERS: Emergency Provider Emergency Medicine
DX: F11.90 Opioid use, unspecified, uncomplicated (principal)
CPT/HCPCS: 99284; S9485

== ENCOUNTER 2025-04-10 18:38 | Emergency (ER) | payer SELFPAY ==
[2025-04-10 18:50] VITALS: BP 142/90; PULSE 68; O2SAT 99; BMI 20.9
[2025-04-10 19:13] VITALS: BP 119/73; PULSE 53; RESP 16; TEMP 36.6; O2SAT 91
[2025-04-10 19:32] VITALS: BP 126/72; PULSE 58; TEMP 36.5; O2SAT 100
[2025-04-10 21:58] VITALS: BP 108/76; PULSE 59; TEMP 36.6; O2SAT 98
--- NOTE | 2025-04-10 22:07 | ED.OVERDOSE ---
HPI - Overdose General Chief Complaint: Overdose Stated Complaint: over love Time Seen by Provider: 04/10/25 19:20 Source: EMS Mode of arrival: EMS Limitations: altered mental status History of Present Illness ED Provider: HPI Narrative: Patient's history of polysubstance abuse cocaine fentanyl and benzos was found in a elevated after using heroin patient has received total 12 mg of Narcan prior to arrival at scene patient was unresponsive saturating 80% at room air on arrival patient lethargic but arousable saturating 91% at 2 L Related Data Previous Rx's ?Medication ?Instructions ?Recorded doxycycline hyclate 100 mg capsule 100 mg PO BID #28 caps 07/21/20 doxycycline hyclate 100 mg capsule 100 mg PO BID cough 7 days #14 caps 10/15/23 Allergies Allergy/AdvReac Type Severity Reaction Status Date / Time Cephalosporins Allergy Severe ANAPHYLAXIS Verified 04/10/25 18:54 (CEPHALOSPORINS) cefaclor (From CECLOR) Allergy Mild AIRWAY Verified 04/10/25 18:54 CONSTRICTION bee stings Allergy Unknown Anaphylaxis Uncoded 04/10/25 18:54 Review of Systems Review of Systems: Yes all other systems are reviewed and are negative [facility] Past Medical History Medical History IV drug abuse Drug abuse Asthma Social History Social History Household Members: None Housing: Homeless Do you presently have visiting nurse or other home services: No Unable to assess alcohol history related to: Unable to respond Alcohol intake: never Comment: resting quietly in bed, eyes closed Cigarette Packs Per Day: 0.5 Cigarettes Per Day: 10.0 Years Smoked: 15 Second Hand Smoke Exposure: Yes Use of substances other than those prescribed or required for medical reasons: Unable to respond Substance Use Type: Crack/Cocaine Do you have a plan to hurt others: No Plan service: No Current occupational status: unemployed Physical Exam Vital Signs: Vital Signs: Last Vital Signs Temp 97.9 F 04/10/25 21:58 Pulse 60 04/10/25 23:15 Resp 20 04/10/25 23:15 BP 108/76 04/10/25 21:58 Pulse Ox 100 04/10/25 23:15 O2 Del Method Room Air 04/10/25 23:15 O2 Flow Rate 2 04/10/25 19:32 BMI result Body Mass Index 20.9 Appearance: Lethargic sleepy arousable to painful stimuli. No acute distress. Eyes: no pallor or icterus pupils normal size normal reaction ENT: Pharynx normal Oral Mucosa moist tympanic membrane intact no erythema, Neck: Normal inspection. Neck supple. CVS: Normal heart rate and rhythm. Pulses normal. Respiratory: No respiratory distress. Equal air entry bilateral, no wheezing/rales/rhonchi Abd: soft, not tender Skin: Skin warm and dry. Normal skin color. Normal skin turgor. Extremities: No lower extremity edema, no calf tenderness Neuro: Oriented X 3. Medical Decision Making Medical Decision Making MDM Narrative: Patient with polysubstance abuse will discharge patient home in a.m. on sober sleeping at this time with stable vitals Discharge Plan Discharge Clinical Impression: Opioid use disorder, Cocaine intoxication Patient Disposition: Home, Self-Care Instructions: Cocaine Use Disorder (ED), Opioid Use Disorder (ED) Additional Instructions: Stop using drugs Follow up with detox Prescriptions: No Action doxycycline hyclate 100 mg capsule 100 mg PO BID Qty: 28 0RF doxycycline hyclate 100 mg capsule 100 mg PO BID 7 Days Qty: 14 0RF Print Language: Chinese
[2025-04-10 23:15] VITALS: PULSE 60; RESP 20; O2SAT 100
[2025-04-11 03:45] VITALS: BP 108/66; PULSE 58; RESP 13; TEMP 35.3; O2SAT 99
[2025-04-11 06:05] LABS: MANUAL DIFF FLAG NO
[2025-04-11 06:06] LABS: Hematocrit 38.8 % (37.0-47.0); Hemoglobin 13.4 g/dl (12.0-16.0); Imm Gran Abs Auto 0.03 X10*3/uL (0.00-0.03); Imm Gran Pct Auto 0.5 % (0.0-0.4); Lymphocytes Absolute Auto 2.2 X10*3/uL (1.2-4.9); Mean Corpuscular HGB Conc 34.5 g/dl (31.0-35.0); Mean Corpuscular Hemoglobin 29.1 pg (27.0-33.0); Mean Corpuscular Volume 84.2 fL (80.0-98.0); NRBC Abs Auto 0.000 X10*3/uL (0.0-0.012); NRBC Pct Auto 0.0 /100WBC (0.0-0.2); Platelet Count 285 X10*3/uL (160-400); Red Blood Count 4.61 X10*6/uL (4.20-5.50); White Blood Count 6.3 X10*3/uL (4.8-10.8)
[2025-04-11 06:32] LABS: Alanine Aminotransferase 102 U/L (0-31); Albumin Level 3.7 g/dL (3.5-5.0); Alkaline Phosphatase 68 U/L (39-117); Anion Gap 13 (12-20); Aspartate Amino Transferase 82 U/L (5-31); Blood Urea Nitrogen 17 mg/dL (9-16); Calcium 8.8 mg/dL (8.4-10.2); Carbon Dioxide 24 mmol/L (22-29); Chloride 108 mmol/L (96-108); Creatinine Clr Calc Pharmacy 136.3; Estimated Glomerular Filt Rate > 60; Potassium 3.6 mmol/L (3.3-5.1); Sodium 141 mmol/L (135-145); Total Protein 7.3 g/dL (6.5-8.0)
[2025-04-11 06:33] LABS: Cannabinoid Screen Urine Not Detected (Not Detect)
[2025-04-11 11:48] VITALS: BP 127/72; PULSE 77; RESP 18; O2SAT 96
[2025-04-11] MEDS: methADONE HCl 20 MG/2 ML ORAL.CONC 40 MG PO (11:48)
[2025-04-11] MEDS: Naloxone HCl Nasal TAKE HOME 4 MG SPRAY 8 MG NOSTRILALT (11:49)
--- NOTE | 2025-04-11 12:10 | PC.NURSE ---
Pt rested quietly for majority of the AM. Pt woke around 11:30a asking for food and drink--Pt provided with sandwich, cheese stick and gingerale. At this point, Pt gathered her things and began walking toawrds the exit, ignoring this RNs ques to come back and talk. Pt repors she wishes to leave and continued to seek an exit. Security alerted and intervened, escorting Pt back to stretcher. Dr. Velásquez made aware PT wishes for d/c at this time and evaluated Pt at bedside. Per, Dr. Montague Pt to be medicated with 40mg Methadone, observed x15-20 minutes then is cleared for d/c. Pt medicated per NOV VS updated. Pt rests quietly on stretcher x15 minutes. Pt provided with 2 doses of IN Narcan to take and keep on person. Pt signs d/c signature page but refuses to take d/c packet. Pt exits ED.
[2025-04-11 12:14] VITALS: BP 127/72; PULSE 77; RESP 18; TEMP -17.7; TEMP 0; O2SAT 96
== END 2025-04-11 12:15 | disposition home or self-care (01) ==
PROVIDERS: Emergency Medicine; Emergency Provider Emergency Medicine Emergency Medical Services
DX: F14.120 Cocaine abuse with intoxication, uncomplicated (principal); F13.20 Sedative, hypnotic or anxiolytic dependence, uncomplicated; F11.20 Opioid dependence, uncomplicated
CPT/HCPCS: 36415; 80048; 80076; 80307; 85025; 99284